=== PATIENT | male | born 1965 | race Caucasian/White ===

== ENCOUNTER 2016-03-21 09:40 | Inpatient (IN) | payer OTHER ==
[2016-03-21] MEDS ORDERED: ONDANSETRON 4 MG/2 ML VIAL IVP PRN (15:00)
[2016-03-21] MEDS ORDERED: POLYETHYLENE GLYCOL 3350 17 GM PKT PO PRN (15:00)
[2016-03-21] MEDS ORDERED: BISACODYL 10 MG SUPP PR PRN (15:00)
[2016-03-21] MEDS ORDERED: ONDANSETRON DISINTEGRATING 4 MG TAB PO PRN (15:00)
[2016-03-21] MEDS ORDERED: diphenhydrAMINE 25 MG CAP PO PRN (15:00)
[2016-03-21] MEDS ORDERED: MAGNESIUM HYDROXIDE 30 ML UDCUP PO PRN (15:00)
[2016-03-21] MEDS ORDERED: HYDROmorphONE/DILAUDID 1 MG/ML SYR IVP PRN (15:00)
[2016-03-21] MEDS ORDERED: ACETAMINOPHEN 325 MG TAB PO PRN (15:00)
[2016-03-21] MEDS: POLYETHYLENE GLYCOL 3350 17 GM PKT PO SCH ×2 (15:29→21:39)
--- NOTE | 2016-03-21 17:37 | GHP ---
[f rep st] HISTORY AND PHYSICAL DATE OF ADMISSION: 03/21/2016 REASON FOR ADMISSION: Lower extremity weakness and severe pain with movement, with an L1 compression deformity, likely metastatic renal cancer. 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 He was seen at [facility] for consultation. Given his severe back pain and his history of transitional renal cell carcinoma, Neurosurgery was consulted for treatment. Discussion between Radiation Oncology and Oncology over at [facility] had recommended surgical stabilization and debulking of the spinal cord given the level of compression. Here at [facility] there are services available for the angiogram with embolization prior to surgery, which will decrease bleeding loss during the surgery. Therefore, the patient was transferred to undergo definitive treatment. The patient today states that his back pain increases with any movement of either his neck or flexion of his hip. He is able to move his legs and feels like he has full strength when he is flat on his back. He does have some numbness over his bilateral hips. He does feel like he is incompletely emptying his bladder even though he has a Hampton in place. He does have severe burning pain with oral medications. He denies any stool incontinence, any saddle anesthesia. REVIEW OF SYSTEMS: Negative other than what is stated in the HPI. Please see for pertinent negatives and pertinent positives. PAST MEDICAL HISTORY: Significant for transitional bladder cell cancer. PAST SURGICAL HISTORY: Significant for vasectomy, bladder surgery biopsy and cystoscopy. SOCIAL HISTORY: The patient has never smoked. He does drink 1-2 alcoholic beverages occasionally. He lives with his . He works as a maintenance supervisor mechanical. ALLERGIES: No known drug allergies. HOME MEDICATIONS: Include diazepam 5 mg, p.r.n. pain, Colace 1 p.o. twice daily. PHYSICAL EXAMINATION: VITAL SIGNS: Blood pressure was 124/74, heart rate 100, respirations 16, O2 saturation 97% on 2 L nasal cannula, temperature 36.8. GENERAL: Patient is in no acute distress. NEUROLOGIC: He is alert and oriented x3. Answers questions appropriately. Mood and affect are appropriate for the given situation. Cranial nerve 2 through 12 grossly intact. EOMI, PERRLA. The patient is 5/5 and equal in his bilateral upper and lower extremities including his deltoids triceps, biceps, wrist flexors, extensors, interossei, intrinsic sales solutions representative, iliopsoas, hamstrings, quadriceps, plantar flexion, dorsiflexion, EHL. His strength exam is somewhat limited to pain as he does have excruciating back pain when he does flex his knees up. It does appear to be full strength. Sensation is intact in bilateral upper and bilateral lower extremities except for the patient does have some numbness over his bilateral lateral hips. DIAGNOSTIC REVIEW: Patient underwent a lumbar spine MRI at [facility] on 03/19 which demonstrated severe pathological fracture of the L1 vertebral body resulting retropulsion and soft-tissue tumor bulging into the ventral epidural space with severe spinal canal stenosis and compression of the conus. There may be some edema noted at the conus as well. There is significant soft tissue tumor involvement in the retroperitoneum, more on the right than on the left-hand side at L1. There is some milder bony metastatic disease at L2 with degenerative changes in the lumbar spine from L3-S1. The patient also underwent labs on 03/20 which demonstrated sodium 132, potassium 4.2, chloride 100, CO2 of 26, BUN 10, creatinine 0.66, glucose 95. His CBC from 03/19 demonstrated WBCs 11.2, hemoglobin of 14.8, hematocrit 44.3, and platelet count of 413. ASSESSMENT/PLAN: The patient is a 50-year-old gentleman with known transitional renal cell carcinoma with spine mets, who has a severe compression deformity at L1 with tumor encroachment of his spinal canal and severe cord compression at the L1 level. He was transferred [facility] to undergo definitive treatment including an angiogram for embolization to reduce blood flow to the tumor to assist in operative resection and reduced blood flow loss. We will plan for embolization on with surgery scheduled for Thursday to include a T11-L3 posterior fusion with laminectomy from T12 to L2, with corpectomy at L1. Given the patient's feeling of urinary retention, we will go ahead and order a bladder scanning protocol to see if his Hampton catheter is fully functioning. Optimize pain management. The patient states that he has had a hard time taking oral pain medications in the past. I have ordered him IV Pepcid to see if this can reduce his stomach upset so he can tolerate p.o. pain medications. Continue q.4 hours neuro checks. If the patient develops any new or worsening symptoms, any change in neurological or motor exam, please notify Neurosurgery. Patient was seen by Dr Aj. /[id number]/MODL MTDD
[2016-03-21] MEDS ORDERED: FAMOTIDINE 20 MG/NACL 50 ML IV SCH (21:00)
[2016-03-21] MEDS: HYDROmorphONE/DILAUDID 1 MG/ML SYR IVP PRN (21:33)
[2016-03-21] MEDS: DIAZEPAM 5 MG TAB PO PRN (21:38)
[2016-03-21] MEDS: SENNOSIDES/DOCUSATE SODIUM TAB PO SCH (21:39)
[2016-03-22] MEDS: HYDROmorphONE/DILAUDID 1 MG/ML SYR IVP PRN ×3 (00:02→05:36)
[2016-03-22] MEDS: METHOCARBAMOL 750 MG TAB PO PRN ×3 (02:33→13:16)
[2016-03-22] MEDS: DIAZEPAM 5 MG TAB PO PRN ×2 (05:36→20:52)
[2016-03-22] MEDS: ENOXAPARIN 40 MG/0.4 ML SYR SC SCH (08:41)
[2016-03-22] MEDS: SENNOSIDES/DOCUSATE SODIUM TAB PO SCH ×2 (08:41→20:52)
[2016-03-22] MEDS: FAMOTIDINE 20 MG TAB PO SCH ×2 (08:41→20:53)
[2016-03-22] MEDS: POLYETHYLENE GLYCOL 3350 17 GM PKT PO SCH ×3 (08:42→20:53)
[2016-03-22] MEDS: HYDROCODONE/APAP 10/325 TAB PO PRN ×3 (08:53→20:53)
--- NOTE | 2016-03-22 15:17 | NEUSURGPN ---
Assessment/Plan: A: 50 yo M with metastatic transitional cell renal CA and L1 compression fx/ intractable back pain. MRI shows conus cord compression. Plan: -Plan for embolization of L1 lesion and T11-L3 PSF, L1 corpectomy, T12-L2 laminectomy later this week -Pain management -Concern for skin breakdown as pt not moving. need to monitor closely -Call NS with any issues Subjective: Pt resting in bed, tolerating oral narcotics. Objective: AAOx3 NAD VSS MAEx4 Motor 5/5 BUE/BLE +LT Urinary Catheter in Place: No Neurosurgery Physical Exam - Vitals, I&O, Labs I and O 03/21/16 03/22/16 03/23/16 05:59 05:59 05:59 Intake Total 150 Output Total 2900 Balance -2750 Weight 54.431 kg Intake: Oral (ml) 150 Output: Urine (ml) 2900 Catheter 2900 Other: Number of Voids Catheter 1 Vital Signs Temp Pulse Resp BP Pulse Ox 36.9 C 101 H 18 132/99 H 95 03/22/16 08:00 03/22/16 08:00 03/22/16 08:00 03/22/16 08:00 03/22/16 08:00 ICD10 Worksheet Patient Problems: Problems Problem Status Diagnosed Renal cell carcinoma Acute - ICD10 Problem Qualifiers (1) Renal cell carcinoma Qualifiers: Laterality: unspecified laterality Qualified Description: Renal cell carcinoma, unspecified laterality Qualifier Code(s): (C64.9) Malignant neoplasm of unspecified kidney, except renal pelvis
[2016-03-23] MEDS: METHOCARBAMOL 750 MG TAB PO PRN (00:38)
[2016-03-23] MEDS: HYDROCODONE/APAP 10/325 TAB PO PRN ×5 (00:38→20:31)
[2016-03-23] MEDS: DIAZEPAM 5 MG TAB PO PRN (05:33)
--- NOTE | 2016-03-23 07:31 | NEUSURGPN ---
Assessment/Plan: A: 50 yo M with metastatic transitional cell renal CA and L1 compression fx/ intractable back pain. MRI shows conus cord compression. Plan: -Plan for embolization of L1 lesion and T11-L3 PSF, L1 corpectomy, T12-L2 laminectomy later this week -Pt verbalizes understanding of plan for embolization/surgery. All Qs answered. -Pain management -Concern for skin breakdown as pt not moving. need to monitor closely -Call NS with any issues Subjective: Pt resting in bed. Pain well managed. Objective: AAOx3 NAD VSS MAEx4 Motor 5/5 BUE/BLE +LT Urinary Catheter in Place: No Neurosurgery Physical Exam - Vitals, I&O, Labs I and O 03/22/16 03/23/16 03/24/16 05:59 05:59 05:59 Intake Total 150 400 Output Total 2900 350 Balance -2750 50 Weight 54.431 kg Intake: Oral (ml) 150 400 Output: Urine (ml) 2900 350 Catheter 2900 350 Other: Number of Voids Catheter 1 Vital Signs Temp Pulse Resp BP Pulse Ox 36.9 C 95 18 128/90 H 94 03/23/16 05:21 03/23/16 05:21 03/23/16 05:21 03/23/16 05:21 03/23/16 05:21 ICD10 Worksheet Patient Problems: Problems Problem Status Diagnosed Renal cell carcinoma Acute - ICD10 Problem Qualifiers (1) Renal cell carcinoma Qualifiers: Laterality: unspecified laterality Qualified Description: Renal cell carcinoma, unspecified laterality Qualifier Code(s): (C64.9) Malignant neoplasm of unspecified kidney, except renal pelvis
[2016-03-23] MEDS: POLYETHYLENE GLYCOL 3350 17 GM PKT PO SCH ×3 (09:42→20:28)
[2016-03-23] MEDS: ENOXAPARIN 40 MG/0.4 ML SYR SC SCH (09:43)
[2016-03-23] MEDS: SENNOSIDES/DOCUSATE SODIUM TAB PO SCH ×2 (09:44→20:26)
[2016-03-23] MEDS: FAMOTIDINE 20 MG TAB PO SCH ×2 (09:44→20:27)
[2016-03-24] MEDS: HYDROCODONE/APAP 10/325 TAB PO PRN ×5 (00:05→21:20)
[2016-03-24] MEDS: DIAZEPAM 5 MG TAB PO PRN (00:05)
--- NOTE | 2016-03-24 07:37 | NEUSURGPN ---
Assessment/Plan: A: 50 yo M with metastatic transitional cell renal CA and L1 compression fx/ intractable back pain. MRI shows conus cord compression. Plan: -Plan for embolization of L1 lesion and T11-L3 PSF, L1 corpectomy, T12-L2 laminectomy later this week -Pt still unble to sit up due to increase in severe pain. Continue pain management, turning -Bowel protocol, Pulmonary toliet -DVT prophx: TEDs, SCDs, Lovenox -Pain management -Concern for skin breakdown as pt not moving. need to monitor closely -Call NS with any issues -Seen with Dr. Aj this morning Subjective: Unable to sit up due to pain, reflux symptoms have improved slightly, tolerating [place] Objective: LIANA MAEx4 5/5 and equal in BUE and BLE - Physician Patient Seen by Dr.: Aj Neurosurgery Physical Exam - Vitals, I&O, Labs I and O 03/23/16 03/24/16 03/25/16 05:59 05:59 05:59 Intake Total 400 1500 Output Total 350 1600 Balance 50 -100 Intake: Oral (ml) 400 1500 Output: Urine (ml) 350 1600 Catheter 350 1600 Other: Intake Quantity Yes Sufficient Vital Signs Temp Pulse Resp BP Pulse Ox 36.9 C 92 16 139/93 H 96 03/24/16 04:21 03/24/16 04:21 03/24/16 04:21 03/24/16 04:21 03/24/16 04:21 ICD10 Worksheet Patient Problems: Problems Problem Status Diagnosed Renal cell carcinoma Acute
[2016-03-24] MEDS: SENNOSIDES/DOCUSATE SODIUM TAB PO SCH ×2 (09:53→21:15)
[2016-03-24] MEDS: LACTULOSE 20 GM/30 ML UDCUP PO PRN (09:53)
[2016-03-24] MEDS: POLYETHYLENE GLYCOL 3350 17 GM PKT PO SCH ×3 (09:53→22:17)
[2016-03-24] MEDS: FAMOTIDINE 20 MG TAB PO SCH ×2 (09:53→21:15)
[2016-03-24] MEDS: ENOXAPARIN 40 MG/0.4 ML SYR SC SCH (09:54)
[2016-03-24] MEDS: HYDROmorphONE/DILAUDID 1 MG/ML SYR IVP PRN (22:58)
[2016-03-25] MEDS: HYDROCODONE/APAP 10/325 TAB PO PRN ×4 (02:36→22:06)
[2016-03-25] MEDS: DIAZEPAM 5 MG TAB PO PRN ×2 (02:36→22:06)
[2016-03-25] MEDS: ENOXAPARIN 40 MG/0.4 ML SYR SC SCH (07:46)
[2016-03-25] MEDS: LACTULOSE 20 GM/30 ML UDCUP PO PRN (07:46)
[2016-03-25] MEDS: SENNOSIDES/DOCUSATE SODIUM TAB PO SCH ×2 (07:47→19:37)
[2016-03-25] MEDS: POLYETHYLENE GLYCOL 3350 17 GM PKT PO SCH ×3 (07:47→19:37)
[2016-03-25] MEDS: FAMOTIDINE 20 MG TAB PO SCH ×2 (08:06→19:37)
--- NOTE | 2016-03-25 09:42 | NEUSURGPN ---
Assessment/Plan: A: 50 yo M with metastatic transitional cell renal CA and L1 compression fx/ intractable back pain. MRI shows conus cord compression. Plan: -Plan for embolization of L1 lesion and T11-L3 PSF, L1 corpectomy, T12-L2 laminectomy later this week. Risks, benefits, and alternatives discussed. Consents left at bedside and questions answered. -Pt still unable to sit up due to increase in severe pain. Continue pain management, turning -Bowel protocol, Pulmonary toliet -DVT prophx: TEDs, SCDs, Lovenox -Pain management -Concern for skin breakdown as pt to get OOB. need to monitor closely -Call NS with any issues -Discussed with Dr. Aj Subjective: continue back pain. Denies nay new leg pain, numbness, tingling or weakness. Objective: NAD A&Ox3 MAEx4 5/5 and equal in BUE and BLE. INcrease pain with hip flexion in low back - Physician Discussed Patient with Dr.: Aj Neurosurgery Physical Exam - Vitals, I&O, Labs I and O 03/24/16 03/25/16 03/26/16 05:59 05:59 05:59 Intake Total 1500 1450 Output Total 1600 1600 Balance -100 -150 Intake: Oral (ml) 1500 1450 Output: Urine (ml) 1600 1600 Catheter 1600 1600 Other: Intake Quantity Yes Sufficient Vital Signs Temp Pulse Resp BP Pulse Ox 36.4 C 92 16 135/84 H 96 03/25/16 07:50 03/25/16 07:50 03/25/16 07:50 03/25/16 07:50 03/25/16 07:50 ICD10 Worksheet Patient Problems: Problems Problem Status Diagnosed Renal cell carcinoma Acute
[2016-03-25] MEDS: NS W/ 20 KCl/L 1,000 ML IV SCH (10:05)
[2016-03-25] MEDS: HYDROmorphONE/DILAUDID 1 MG/ML SYR IVP PRN ×2 (13:11→18:16)
[2016-03-26] MEDS: HYDROCODONE/APAP 10/325 TAB PO PRN ×3 (04:38→20:35)
[2016-03-26] MEDS: DIAZEPAM 5 MG TAB PO PRN ×3 (04:38→20:35)
--- NOTE | 2016-03-26 07:50 | SOAPPROG ---
ZAID Progress Note Assessment/Plan: Assessment: 50 yo M with metastatic L1 lesion Plan: stable plan for angiogram for embolization of lesion tomorrow and surgery on Thursday PT/OT will check cbc/bmp today please call with neuro changes npo after midnight discussed with Dr Aj 03/26/16 07:48 Subjective: continued back pain, no leg pain Objective: Vital Signs Temp Pulse Resp BP Pulse Ox 36.8 C 84 16 123/82 H 96 03/26/16 07:29 03/26/16 07:29 03/26/16 07:29 03/26/16 07:29 03/26/16 07:29 03/25/16 03/26/16 03/27/16 05:59 05:59 05:59 Intake Total 1450 2250 Output Total 1600 1300 Balance -150 950 AAOX4, +FC PERRL, EOMI, no facial droop 5/5 + light touch ICD10 Worksheet Patient Problems: Problems Problem Status Diagnosed Renal cell carcinoma Acute
[2016-03-26 08:24] LABS: HEMATOCRIT 39.1 % (40.0-51.0); HEMOGLOBIN 12.6 g/dL (13.7-17.5); MEAN CELL HEMOGLOBIN 30.1 pg (27.9-34.1); MEAN CELL HEMOGLOBIN CONCENTR. 32.2 g/dL (32.4-36.7); MEAN CELL VOLUME 93.3 fL (81.5-99.8); RED BLOOD CELL COUNT 4.19 10^6/uL (4.40-6.38); RED CELL DISTRIBUTION WIDTH 13.8 % (11.5-15.2)
[2016-03-26 09:15] LABS: ANION GAP 7 mEq/L (8-16); CALCIUM 11.6 mg/dL (8.5-10.4); CARBON DIOXIDE 26 mEq/l (22-31); CHLORIDE 101 mEq/L (97-110); CREATININE 0.7 mg/dL (0.7-1.3); GLOMERULAR FILTRATION RATE > 60; GLUCOSE 93 mg/dL (70-100); POTASSIUM 4.7 mEq/L (3.5-5.2); SODIUM 134 mEq/L (134-144)
[2016-03-26] MEDS: POLYETHYLENE GLYCOL 3350 17 GM PKT PO SCH ×3 (09:18→20:41)
[2016-03-26] MEDS: ENOXAPARIN 40 MG/0.4 ML SYR SC SCH (09:18)
[2016-03-26] MEDS: FAMOTIDINE 20 MG TAB PO SCH ×2 (09:18→20:35)
[2016-03-26] MEDS: SENNOSIDES/DOCUSATE SODIUM TAB PO SCH ×2 (09:18→20:35)
[2016-03-26] MEDS: HYDROmorphONE/DILAUDID 1 MG/ML SYR IVP PRN ×2 (11:33→20:42)
[2016-03-26] MEDS: NS W/ 20 KCl/L 1,000 ML IV SCH (16:40)
[2016-03-27] MEDS: HYDROmorphONE/DILAUDID 1 MG/ML SYR IVP PRN ×7 (04:05→22:25)
[2016-03-27] MEDS: NS W/ 20 KCl/L 1,000 ML IV SCH ×2 (06:29→16:42)
--- NOTE | 2016-03-27 08:02 | NEUSURGPN ---
Assessment/Plan: A: 50 yo M with metastatic transitional cell renal CA and L1 compression fx/ intractable back pain. MRI shows conus cord compression. Plan: -Plan for embolization of L1 lesion today. NPO. -T11-L3 PSF, L1 corpectomy, T12-L2 laminectomy tomorrow. -Risks, benefits, and alternatives have been discussed. Consents in chart. -Pt still unable to sit up due to increase in severe pain. Continue pain management, turning -Bowel protocol, Pulmonary toliet -Pt c/o burning in abdomen d/t oral narcotics. On pepcid, will try adding H2 gunnar to see if this provides any benefit. -DVT prophx: TEDs, SCDs, Lovenox -Pain management -Concern for skin breakdown as pt to get OOB. need to monitor closely -Call NS with any issues -Discussed with Dr. Aj & Dr Farmer Subjective: Pt resting in bed, c/o burning in abdomen that he relates to oral narcotics. Continued back pain. Objective: AAOx3 NAD VSS MAEx4 Motor 5/5 BUE/BLE +LT Urinary Catheter in Place: Yes Urinary Catheter Indication: Other (Use Comment) (not ambulating) - Physician Discussed Patient with : Madai Neurosurgery Physical Exam - Vitals, I&O, Labs I and O 03/26/16 03/27/16 03/28/16 05:59 05:59 05:59 Intake Total 2250 2229 Output Total 1300 1800 Balance 950 429 Intake: Oral (ml) 1350 350 IV Infused (ml) 900 1879 NS W/ 20 KCl/L 1,000 ml @ 900 1879 75 mls/hr IV CONT CARLITOS Rx #:[id number] Output: Urine (ml) 1300 1800 Catheter 1300 1800 Other: Intake Quantity Yes Sufficient Number of Stools Catheter 1 Incontinence 1 Vital Signs Temp Pulse Resp BP Pulse Ox 36.9 C 87 16 130/82 H 95 03/26/16 23:44 03/26/16 23:44 03/26/16 23:44 03/26/16 23:44 03/26/16 23:44 Laboratory Results 03/26/16 08:17 03/26/16 08:17 ICD10 Worksheet Patient Problems: Problems Problem Status Diagnosed Renal cell carcinoma Acute - ICD10 Problem Qualifiers (1) Renal cell carcinoma Qualifiers: Laterality: unspecified laterality Qualified Description: Renal cell carcinoma, unspecified laterality Qualifier Code(s): (C64.9) Malignant neoplasm of unspecified kidney, except renal pelvis
[2016-03-27] MEDS: FAMOTIDINE 20 MG/NACL 50 ML IV SCH ×2 (09:00→20:08)
[2016-03-27] MEDS: ENOXAPARIN 40 MG/0.4 ML SYR SC SCH (09:04)
[2016-03-27] MEDS: POLYETHYLENE GLYCOL 3350 17 GM PKT PO SCH ×3 (09:05→20:08)
[2016-03-27] MEDS: SENNOSIDES/DOCUSATE SODIUM TAB PO SCH ×2 (09:05→20:08)
[2016-03-27] MEDS: DIAZEPAM 10 MG/2 ML SYR IVP PRN ×2 (09:14→18:11)
[2016-03-27] MEDS ORDERED: fentaNYL 250 MCG/5 ML INJ ONE (13:21)
[2016-03-27] MEDS ORDERED: MIDAZOLAM 2 MG/2 ML VIAL ONE (13:21)
[2016-03-27] MEDS ORDERED: PROPOFOL 200 MG/20 ML VIAL ONE ×2 (13:21→14:07)
[2016-03-27] MEDS ORDERED: RANITIDINE HCL IV SCH (14:00)
[2016-03-27] MEDS ORDERED: D5W IV SCH (14:00)
[2016-03-27] MEDS ORDERED: RANITIDINE 50 MG/2 ML VIAL IVP SCH (14:00)
[2016-03-27] MEDS ORDERED: ROCURONIUM 50 MG/5 ML VIAL ONE (14:06)
[2016-03-27] MEDS ORDERED: LIDOCAINE 2% 5 ML SDV ONE (14:06)
[2016-03-27] MEDS ORDERED: IOPAMIDOL (ISOVUE-300) 100 ML BTL IV ONE ×2 (14:10→15:55)
[2016-03-27] MEDS ORDERED: ONDANSETRON 4 MG/2 ML VIAL ONE (14:27)
[2016-03-27] MEDS ORDERED: DEXAMETHASONE 4 MG/ML VIAL ONE (14:27)
--- NOTE | 2016-03-27 15:51 | POSTOPPROG ---
Post Op Note Date of Operation: 03/27/16 Surgeon: Chano Farmer It Investment/Portfolio Manager: none Anesthesia: GET(General Endotracheal) Pre-op Diagnosis: L1 tumor Post-op Diagnosis: same Indication: Pre-surgical embolization Procedure: Spinal angiogram T11-L3, embolization of right L1 radicular branch Findings: successful tumor embolization, relatively minimal tumor blush Inf/Abcess present in the surg proc area at time of surgery?: No EBL: Minimal Complications: none Specimen(s): none Neurosurgery Physical Exam - Physical Exam General Appearance: no apparent distress - Vitals, I&O, Labs I and O 03/26/16 03/27/16 03/28/16 05:59 05:59 05:59 Intake Total 2250 2229 Output Total 1300 1800 Balance 950 429 Intake: Oral (ml) 1350 350 IV Infused (ml) 900 1879 NS W/ 20 KCl/L 1,000 ml @ 900 1879 75 mls/hr IV CONT CARLITOS Rx #:[id number] Output: Urine (ml) 1300 1800 Catheter 1300 1800 Other: Intake Quantity Yes Sufficient Number of Stools Catheter 1 Incontinence 1 Vital Signs Temp Pulse Resp BP Pulse Ox 36.8 C 101 H 19 141/86 H 100 03/27/16 12:28 03/27/16 12:28 03/27/16 15:46 03/27/16 15:46 03/27/16 15:46 Laboratory Results 03/26/16 08:17 03/26/16 08:17 Patient waking from anesthetic strength 5/5 in KF/KE, PF/DF bilaterally. HF difficult to assess due to back pain sensation intact distal pulses intact, groin CDI
--- NOTE | 2016-03-27 20:14 | IR ---
Neurovascular Angiogram Procedure Report March 27, 2016 Attending Physician: Chano Farmer M.D. Assistants: None. Procedure: 1. Selective catheterization of bilateral spinal radicular arteries T11 through L3. 2. Selective spinal angiography of bilateral T11 through L3, with angiographic supervision and interpretation. 3. Spinal embolization of vertebral body tumor via right L1 pedicle. 4. Follow-up angiography via an existing catheter. Preoperative Diagnosis: Pathologic compression fracture at L1 from likely metastatic renal cell carcinoma. Postoperative Diagnosis: Pathologic compression fracture at L1 from likely metastatic renal cell carcinoma. Brief Clinical History: Regis Mcclendon is a 50-year-old man with metastatic renal cell carcinoma. He was admitted at [facility] last week with intractable back pain. He has been transferred to [facility] and was scheduled for preoperative embolism today for L1 corpectomy and fusion tomorrow. The procedure was done in the hopes of cutting down on the preoperative blood supply for better ease of surgery tomorrow. Operative Findings: Successful selective spinal angiography and tumor embolization via the right L1 pedicle. The artery of Adamkiewicz is from the left L1 radicular artery. Procedure In Detail: After informed consent was obtained from the patient, the patient was brought to the Angiography Suite and placed in supine position on the angiography table. A formal timeout was performed identifying the patient by name, medical record number, and date of . The endotracheal tube was then placed and general endotracheal anesthesia was smoothly induced by anesthesia. The bilateral groins were prepped and draped in the normal sterile fashion. Using a 5-Fijian Micropuncture kit and Seldinger technique, the right common femoral artery was entered just below the inguinal ligament and a 5- Fijian [place] working sheath was placed. Through this working sheath, a 5- Fijian Grace catheter over a 3J Glidewire was advanced into the descending aorta. The catheter was then shaped into its regular position. The catheter was then used to selectively catheterize the spinal radicular arteries at T11 through L3 bilaterally. Selective spinal angiography was performed on each vessel with multiple oblique views where needed. Once the spinal angiography was complete, the artery of Adamkiewicz was localized at the left L1 pedicle and the right L1 pedicle has small blush consistent with a tumor. Overall, the blush was not very significant however was safe for embolization. Therefore, a 0.027 microcatheter was advanced through the Vanda catheter into the L1 radicular artery and placed distally. Microcatheter angiography was performed confirming good placement of a Microcatheter, with no obvious collateralization to the spinal cord or the artery of Adamkiewicz. 250 micron Embozene particles were then infused through the Microcatheter until static flow was obtained into the right L1 radicular artery. The Microcatheter was then flushed and removed and the follow-up angiography was performed with AP views through the existing catheter. The catheter was then removed from the body. The sheath was removed and manual compression was held for eight minutes. At the end of the procedure , the groin was clean and dry and the distal pulses were palpable and strong. The patient was then awakened from anesthesia and taken to the PACU in stable condition. There were no operative complications. I was scrubbed and present for the entire procedure. The patient's neurologic exam was at its baseline. Radiographic Interpretation: Left T11: The left T11 radicular artery is in its normal configuration. There is no sign of fistula or other abnormality. There is slight collateralization with T12 on the left side below. No tumor blush is seen. The artery of Adamkiewicz is not seen at this level. Right T11: The radicular artery is of its normal configuration. There is again slight collateralization with the right T12 below. There are no collaterals to the spinal cord and no fistula is seen. No tumor blush is visualized in this vessel. Right T12: The right T12 radicular artery shows normal anatomy. There is some blush of the T12 vertebral body but this is not terribly significant. The artery of Adamkiewicz is not seen at this level. No further pathology is visualized. Left T12: The left T12 radicular artery is seen and is normal. There is no abnormal collateralization with the spinal cord. No significant tumor blush is seen. There is no sign of fistula or other pathology. Right L1: The right L1 radicular artery is visualized. There is a slight tumor blush posteriorly and medially in the vertebral body. Overall, this is not a very large blush with the tumor, which would normally be seen with renal cell carcinoma. No abnormal communications with the spinal cord or the artery of Adamkiewicz are seen. Left L1 radicular artery: At the left L1, the artery of Adamkiewicz is seen anastomosing with the spinal arteries in the midline. It does have its classic hairpin shape. No significant tumor blush at the L1 vertebral body is seen from this pedicle. There is no other sign of fistula or abnormality. Right L2: The right L2 radicular artery appears normal in its anatomy. There are no abnormal connections or fistula. There is no sign of a tumor blush from this vessel. Left L2: The left L2 radicular artery is of normal course and caliber. There is no abnormal anastomoses. There is no sign of tumor blush or communication with the L1 vertebral body at this level. Left L3: The left L3 and right L3 come from a near common trunk. There is some opacification of the right L3 radicular artery from the left-sided injection. The artery is of normal course and caliber. There is no sign or a fistula or any communication with the tumor or tumor blush. Right L3: Again, the right L3 radicular artery comes from a near common trunk with the left. The right L3 radicular artery is of normal course and caliber. There is no sign of fistula and no tumor blush is seen. Right renal artery: The right renal artery shows normal anatomy. There is no sign of an abnormal fistula or connection with the spinal canal. Left renal artery: The left renal artery has normal anatomy. There is no sign of any tumor supply or fistula. The remainder of the anatomy is normal. Right L1 radicular artery postembolization: Postembolization of the right L1 radicular artery has stagnant flow of contrast in the proximal segment. There is no further supply of any tumor blush or any distal supply in the L1 radicular artery. There is some slight stagnant contrast blush from the embolization in the area of the right L1 pedicle and facet joint. Impressions: Successful spinal angiography of T11 to L3 bilaterally. The artery of Adamkiewicz originates at the left L1 radicular artery and anastomoses with the arteries of the spinal canal. The right L1 radicular artery was embolized with 250 micron embolizing particles until there was a stagnant flow in that artery. No further tumor blush was seen on follow-up angiography. The patient tolerated the procedure well and there were no complications. E:AB/amm ARAVINDD
[2016-03-28] MEDS: HYDROmorphONE/DILAUDID 1 MG/ML SYR IVP PRN ×7 (01:12→22:14)
[2016-03-28] MEDS: DIAZEPAM 10 MG/2 ML SYR IVP PRN ×2 (01:12→20:50)
[2016-03-28] MEDS ORDERED: SKIN ADHESIVE (DERMABOND) 1 EACH TP ONE (06:48)
[2016-03-28] MEDS ORDERED: THROMBIN (RECOMBINANT) 20,000 UNIT VIAL TP ONE (06:48)
[2016-03-28] MEDS ORDERED: BUPIVACAINE/EPI 0.25% 30 ML SDV ONE (06:48)
[2016-03-28] MEDS ORDERED: BACITRACIN 50,000 UNITS/10 ML SYR IRR ONE (06:49)
[2016-03-28] MEDS ORDERED: REMIFENTANIL HCL 1 MG VIAL ONE ×2 (07:14→11:07)
[2016-03-28] MEDS ORDERED: PROPOFOL/EMULSION 500 MG/50 ML BOTTLE IV ONE ×2 (07:14→11:07)
[2016-03-28] MEDS ORDERED: DEXAMETHASONE 4 MG/ML VIAL ONE (07:15)
[2016-03-28] MEDS ORDERED: METOCLOPRAMIDE 10 MG/2 ML VIAL ONE (07:15)
[2016-03-28] MEDS ORDERED: ROCURONIUM 100 MG/10 ML VIAL ONE (07:15)
[2016-03-28] MEDS ORDERED: MIDAZOLAM 2 MG/2 ML VIAL ONE ×2 (07:15→13:56)
[2016-03-28] MEDS ORDERED: LIDOCAINE 2% 100 MG/5 ML SYR IVP ONE (07:15)
--- NOTE | 2016-03-28 07:42 | NEUSURGPN ---
Assessment/Plan: A: 50 yo M with metastatic transitional cell renal CA and L1 compression fx/ intractable back pain. MRI shows conus cord compression. TO OR this morning for Risks, benefits and alternatives to T11-L3 posterior fusion laminectomy T12-L2 with L1 corepectomy discussed. Consents signed. Questions answered Patient marked Seen by Dr. Aj and myself Neurosurgery Physical Exam - Vitals, I&O, Labs I and O 03/27/16 03/28/16 03/29/16 05:59 05:59 05:59 Intake Total 2229 1300 Output Total 1800 2600 Balance 429 -1300 Intake: Oral (ml) 350 IV Intake (ml) 1300 IV Infused (ml) 1879 NS W/ 20 KCl/L 1,000 ml @ 1879 75 mls/hr IV CONT CARLITOS Rx #:[id number] Output: Urine (ml) 1800 2600 Catheter 1800 2600 Other: Intake Quantity Yes Sufficient Number of Stools Incontinence 1 1 1 Vital Signs Temp Pulse Resp BP Pulse Ox 36.8 C 93 16 148/95 H 93 03/28/16 03:28 03/28/16 03:28 03/28/16 03:28 03/28/16 03:28 03/28/16 03:28 Laboratory Results 03/26/16 08:17 03/26/16 08:17 ICD10 Worksheet Patient Problems: Problems Problem Status Diagnosed Renal cell carcinoma Acute
[2016-03-28] MEDS ORDERED: PHENYLEPHRINE 10 MG/ML SDV ONE (11:14)
[2016-03-28] MEDS ORDERED: SUGAMMADEX SODIUM 200 MG/2 ML VIAL IVP ONE (11:44)
[2016-03-28] MEDS ORDERED: fentaNYL 100 MCG/2 ML INJ ONE ×2 (11:56→13:39)
--- NOTE | 2016-03-28 13:29 | POSTOPPROG ---
Post Op Note Date of Operation: 03/28/16 Surgeon: Aris Aj Associate Professor Of Sociology: ADRIANA Alvarado Anesthesia: GET(General Endotracheal) Pre-op Diagnosis: spinal mass, spinal cord compression Post-op Diagnosis: spinal mass, spinal cord compression Indication: spinal mass, spinal cord compression Procedure: T11-L3 posterior fusion, T12-L2 laminectomy with L1 corepectomy Inf/Abcess present in the surg proc area at time of surgery?: No EBL: 350 Drains: Art BRADY Addendum - Addendum .: S: incisional site/low back pain O: NAD A&Ox3 MAEx4, MICHELE drain serosanguineous Plan -Final pathology pending, prelim intraop path consistent with known tranistional renal carcinoma - post MRI pending -Post op xrays pending -Ramer brace when OOB -MICHELE x1 -DVT pophx: TEDs, SCDs, Lovenox okay POD#1 -Optimize pain management -Encourage patient to get OOB to chair, promote diet -Please notify NS with any change in neuro/motor exam
--- NOTE | 2016-03-28 13:33 | GOP ---
[f rep st] OPERATIVE REPORT DATE OF OPERATION: 03/28/2016 SURGEON: Aris Aj MD FLOOR MECHANIC: assisted living executive director: Mara Alvarado PA-C. ANESTHESIA: General. PREOPERATIVE DIAGNOSIS: 1. L1 pathologic compression fracture secondary to metastatic renal cell carcinoma. 2. Intractable back pain. 3. Severe spinal cord compression. 4. Treatment refractory to nonoperative intervention. POSTOPERATIVE DIAGNOSIS: 1. L1 pathologic compression fracture secondary to metastatic renal cell carcinoma. 2. Intractable back pain. 3. Severe spinal cord compression. 4. Treatment refractory to nonoperative intervention. PROCEDURE PERFORMED: 1. Open reduction and internal fixation of L1 pathologic compression fracture. 2. Posterior arthrodesis with approach at T11, T12, L1, L2, and L3. 3. Posterolateral fusion with bilateral pedicle screw placement at T11, T12, L2 , and L3 from the [employer] SOLERA system. 4. Posterolateral fusion between T11 and L3 on the left, and T11, T12, L2, and L3 on the right morselized autograft and allograft. 5. Decompressive laminectomy with bilateral medial facetectomies at T12-L1 and L1-L2 with resection of epidural compressive lesion. 6. Right-sided L1 transpedicular corpectomy and interbody fusion between the endplates of T12 and L1 with a Medtronic Altitude expandable cage filled with morselized allograft and autograft. 7. Use of intraoperative 3D Stealth navigation. 8. Use of intraoperative fluoroscopy, with less than 1 hour of physician time. 9. Use of neuromonitoring. FINDINGS: SPECIMENS: The L1 vertebral body was sent to Pathology for both permanent and frozen analysis. ESTIMATED BLOOD LOSS: 350 mL. INDICATIONS: The patient is a 50-year-old gentleman with a known history of renal cell metastatic carcinoma. He presented with worsening low back pain and was mobilized at home. Evidence of a pathologic compression fracture at L1 afforded severe spinal cord compression. After discussion of the risks, benefits, and treatment alternatives, we decided to proceed forth with the surgery as described above. The patient underwent embolization the day before surgical intervention. He presents now for that surgery to decompress and stabilize his spine. DESCRIPTION OF PROCEDURE: The patient was brought to the operating theater and underwent general endotracheal anesthesia without complications. He had Venodynes and RUBÉN hose, and a Hampton catheter placed. He had appropriate lines placed by Anesthesia, and a pre-flip baseline obtained from neuromonitoring. These were noted to be stable. The patient was then flipped prone onto the Art table using very careful spinal precautions. All bony processes were inspected and padded. The thoracolumbar area was prepped and draped in the usual sterile surgical fashion. A time-out was completed per protocol, and the patient received antibiotics within 1 hour of incision. Using lateral fluoroscopy and a spinal needle, we then picked our entry point at the T11 through L3 levels. This was marked in the midline, and the incision was infiltrated with Marcaine with epinephrine. The incision was taken down with a scalpel blade. Using the monopolar, it was taken down the midline through the lumbodorsal fascia, and a subperiosteal dissection was carried out to the transverse process of T11, T12, L1, L2, and L3. Deep retractors were placed to maintain our exposure. We attached the 3D Stealth navigation clamp to the spinous process of L3 and completed a 3D Stealth navigation spin. Using 3D Stealth navigation, we placed the remote pilot operator holes for the bilateral pedicle screws at T11, T12, L2, and L3. All holes were manually palpated with no evidence of any cortical breaches. We placed 6.5 mm screws bilaterally in T11, T12, L2, and L3 from the [employer] SOLERA system. Another 3D Stealth navigation spin demonstrated good placement of the hardware. At this point, we used a combination of bur tip on the drill, Kerrison rongeurs punches, and a Leksell rongeur, and we completed a decompressive laminectomy at T12, L1, and L2 with bilateral medial facetectomies. We then traveled around to the right side of the L1 level. Using a transpedicular approach, we completed an L1 partial corpectomy. There was evidence of lots of tumor and soft tissue within this area, as well as some bony fragments. We sent the specimen off to Pathology for both frozen and permanent analysis. This came back consistent with renal cell metastatic carcinoma. Once we felt that the spinal cord was well decompressed, we measured the endplates between T12 and L2, which we then prepared. We measured them by space and placed a 36 mm expandable cage filled with morselized autograft and allograft between the endplates of T12 and L2 using live AP and lateral fluoroscopic images. We packed additional morcellized autograft in the disk space for interbody fusion. We then decorticated the bone on the left side between T11 and L3, and on the right side between T11, T12, L1, L2, and L3 for the posterolateral fusion. We placed 2 rods into the heads of the screws between T11 and L3, and secured them with cap screws which were then tightened after compression across the T12-L2 space. The cap screws were tightened per the gas turbine mechanic's setting. The wound was irrigated copiously with bacitracin irrigation, and we placed morselized autograft and allograft bilaterally between T11, T12, L2, and L3, and on the left side between T12 and L2. AP and lateral x-rays demonstrated good placement of the hardware. A drain was left in the subfascial space, and the wound was then closed in multiple layers using Vicryl sutures in the deep layers and a running nylon stitch for the skin. The patient's wounds were dressed sterilely. He was then flipped supine on the transfer cart and was still asleep at the time of this dictation. There were no complications and no noted changes on neuromonitoring throughout the procedure. COMPLICATIONS: None. /[id number]/MODL MTDD
--- NOTE | 2016-03-28 15:08 | DX ---
Fluoroscopy Provided for Spinal Fusion Indication: Metastatic disease. Fluoroscopy time: 11.97. Dose: 18.1 mGy. Two O-arm spins were utilized yielding 669.85 DLP(mGycm). Technique: 2 intraoperative spot films were submitted. Comparison: MRI lumbar spine dated March 19, 2016. Findings: A 5 level posterior fusion construct has been performed and a corpectomy cage is present in the midportion of the construct. Impression: Fluoroscopy provided for posterior spinal fusion and corpectomy.
[2016-03-28] MEDS: SENNOSIDES/DOCUSATE SODIUM TAB PO SCH ×2 (15:32→21:38)
[2016-03-28] MEDS: POLYETHYLENE GLYCOL 3350 17 GM PKT PO SCH ×3 (15:32→21:38)
[2016-03-28] MEDS: FAMOTIDINE 20 MG/NACL 50 ML IV SCH ×2 (15:32→21:38)
[2016-03-28] MEDS: D5W NS W/ 20 KCl/L 1,000 ML IV SCH (15:36)
[2016-03-28] MEDS ORDERED: GADOBUTROL 10 ML VIAL IVP ONE (20:47)
[2016-03-28] MEDS ORDERED: SENNOSIDES/DOCUSATE SODIUM TAB PO SCH (21:00)
[2016-03-28] MEDS: HYDROCODONE/APAP 10/325 TAB PO PRN (22:13)
--- NOTE | 2016-03-28 22:17 | MR ---
MRI Lumbar Spine, Without and With Contrast History: History of metastatic renal cell carcinoma. Status post lumbar surgery. Technique: MRI was performed of the lumbar spine using a 1.5 Coreen MRI system. Sagittal, axial, and coronal imaging was obtained with standard imaging sequences. Images were obtained pre- and postint ravenous contrast, 5 mL Gadavist. Comparison: Outside MRI March 19, 2016. Findings: Postsurgical changes are seen of corpectomy and placement of a metallic cage at the level of L1. Pedicle screws have been placed at the T11, T12, L2, and L3 levels, with stabilization rods. With the postsurgical change, the level of corpectomy has limited evaluation in the spinal canal but it appears that the posterior bowing and retropulsion of the compression fracture and metastatic dis ease into the spinal canal has been improved. There is still some mild residual posterior bowing at the posterior cortex proximally 5 mm although limited evaluation. A metastatic lesion in the L2 vert ebral body is not as well seen with a metal artifact. The visualized thoracic spinal cord is normal in signal intensity although there is poor visualization of the conus at the level of surgery with th e metal artifact. There is edema in the paraspinous musculature bilaterally, right greater than left . There is also some edema in the posterior perirenal fat on the right. There is edema in the cathie pinous musculature from the surgery. Periaortic soft tissue masses are again visualized and similar in appearance with this limited evaluation. The paravertebral soft tissue mass anteriorly on the rig ht is also similar in appearance. Renal cortical cysts are seen bilaterally, with the largest being exophytic midpole left kidney, ko uring 4 cm. Degenerative disk and degenerative joint disease is seen at L3-L4 through L5-S1. There is a broad-ba sed annular bulge and facet arthropathy bilaterally, stable in appearance. Impression: Postsurgical changes of corpectomy of the metastatic lesion, with compression fracture a t L1, with reduction of the central spinal canal narrowing, as above. Fusion T11-L3, as above. The periaortic and paravertebral soft tissue masses are again visualized and stable with this limited jairo luation. Metastatic lesion in L2 is not as well seen with the metal artifact. Other postsurgical ch anges, as above.
[2016-03-29] MEDS: DIAZEPAM 10 MG/2 ML SYR IVP PRN ×2 (01:23→14:47)
[2016-03-29] MEDS: HYDROmorphONE/DILAUDID 2 MG TAB PO PRN ×2 (04:32→12:33)
[2016-03-29] MEDS: HYDROmorphONE/DILAUDID 1 MG/ML SYR IVP PRN ×7 (05:30→23:08)
[2016-03-29] MEDS: FAMOTIDINE 20 MG/NACL 50 ML IV SCH (08:10)
[2016-03-29] MEDS: POLYETHYLENE GLYCOL 3350 17 GM PKT PO SCH ×3 (09:11→20:11)
[2016-03-29] MEDS: SENNOSIDES/DOCUSATE SODIUM TAB PO SCH ×2 (09:11→20:11)
--- NOTE | 2016-03-29 10:05 | NEUSURGPN ---
Date of Surgery: 03/28/16 Post Op Day: 1 Assessment/Plan: 50 yo male with metastatic transitional renal CA POD #1 sp T11-L3 decompression/fusion with L1 corpectomy neuro stable, pain currently controlled Continue ICU today follow pathology/labs PT/OT as tolerated Continue MICHELE D/W Dr. Carreon Subjective: lying in bed, comfortable at the moment conversant, but tangential Objective: NEURO: CRUZ, sens +LT 5/5 DF/PF Urinary Catheter in Place: Yes Urinary Catheter Indication: Surgical Requirement Catheter Insertion Date: 03/28/16 - MICHELE Drain Subfascial Wound Drainage (ml): 50 Neurosurgery Physical Exam - Vitals, I&O, Labs I and O 03/28/16 03/29/16 03/30/16 05:59 05:59 05:59 Intake Total 1300 3000 Output Total 2600 1425 Balance -1300 1575 Intake: Oral (ml) 540 IV Intake (ml) 1300 2250 IV Infused (ml) 210 ceFAZolin 1 GM/DEXTROSE 50 50 ml @ 200 mls/hr IV Q8HRS CARLITOS Rx#:[id number] D5W NS W/ 20 KCl/L 1,000 160 ml @ 100 mls/hr IV CONT CARLITOS Rx#:[id number] Output: Urine (ml) 2600 1025 Catheter 2600 1025 Estimated Blood Loss (ml) 350 Wound Drainage (ml) 50 #1 Left Back 50 Other: Number of Stools Incontinence 1 1 Vital Signs Temp Pulse Resp BP Pulse Ox 36.4 C 96 20 108/68 98 03/29/16 08:00 03/29/16 08:00 03/29/16 08:00 03/29/16 08:00 03/29/16 08:00 Laboratory Results 03/26/16 08:17 03/26/16 08:17 ICD10 Worksheet Patient Problems: Problems Problem Status Diagnosed Renal cell carcinoma Acute
[2016-03-29] MEDS: D5W NS W/ 20 KCl/L 1,000 ML IV SCH (13:26)
[2016-03-29] MEDS: FAMOTIDINE 20 MG TAB PO SCH (19:48)
[2016-03-30] MEDS: HYDROmorphONE/DILAUDID 1 MG/ML SYR IVP PRN ×2 (02:23→03:54)
[2016-03-30] MEDS: METHOCARBAMOL 750 MG TAB PO PRN ×3 (03:54→19:27)
[2016-03-30] MEDS ORDERED: HYDROmorphONE/DILAUDID 1 MG/ML SYR IVP PRN (07:48)
[2016-03-30] MEDS: FAMOTIDINE 20 MG TAB PO SCH ×2 (08:01→19:28)
[2016-03-30] MEDS: SENNOSIDES/DOCUSATE SODIUM TAB PO SCH ×2 (08:01→20:15)
[2016-03-30] MEDS: POLYETHYLENE GLYCOL 3350 17 GM PKT PO SCH ×3 (08:01→20:15)
[2016-03-30] MEDS: HYDROCODONE/APAP 10/325 TAB PO PRN ×2 (08:57→19:27)
[2016-03-30] MEDS: D5W NS W/ 20 KCl/L 1,000 ML IV SCH (10:35)
[2016-03-30] MEDS: ENOXAPARIN 40 MG/0.4 ML SYR SC SCH (12:08)
--- NOTE | 2016-03-30 12:26 | NEUSURGPN ---
Date of Surgery: 03/28/16 Post Op Day: 2 Assessment/Plan: 50 yo male with metastatic transitional renal CA POD #2 sp T11-L3 decompression/fusion with L1 corpectomy neuro stable, pain currently controlled Continue ICU today follow pathology/labs PT/OT as tolerated - currently max 2 person assist Continue MICHELE will get CBC and chemistry today D/W Dr. Carreon Subjective: standing with max assist with PT at bedside pain controlled generalized weakness Objective: Neuro: CRUZ but max assist with PT able 4/5 bilat quad/iliopsoas, 5/5 DF/PF, 4+5 EHL Sens +LT MICHELE: 85 ml overnight Dressing: CDI Catheter Insertion Date: 03/21/16 - Physician Discussed Patient with Dr.: Other (Lauri) Neurosurgery Physical Exam - Vitals, I&O, Labs I and O 03/29/16 03/30/16 03/31/16 05:59 05:59 05:59 Intake Total 3000 2644 Output Total 1425 1050 Balance 1575 1594 Intake: Oral (ml) 540 800 IV Intake (ml) 2250 IV Infused (ml) 210 1844 Famotidine 20 mg/NaCl 50 50 ml @ 200 mls/hr IV Q12 [facility]LITOS Rx#:[id number] ceFAZolin 1 GM/DEXTROSE 50 50 ml @ 200 mls/hr IV Q8HRS CARLITOS Rx#:[id number] D5W NS W/ 20 KCl/L 1,313 649 5312 ml @ 100 mls/hr IV CONT CARLITOS Rx#:[id number] Output: Urine (ml) 1025 825 Catheter 1025 825 Estimated Blood Loss (ml) 350 Wound Drainage (ml) 50 Subfascial 50 Wound Drainage (ml) 50 175 #1 Left Back 50 175 Other: Number of Stools Catheter 1 Incontinence 1 3 Vital Signs Temp Pulse Resp BP Pulse Ox 36.6 C 105 H 29 H 100/74 100 03/30/16 11:58 03/30/16 11:58 03/30/16 11:58 03/30/16 11:58 03/30/16 11:58 Laboratory Results 03/26/16 08:17 03/26/16 08:17 ICD10 Worksheet Patient Problems: Problems Problem Status Diagnosed Renal cell carcinoma Acute
[2016-03-30] MEDS: HYDROmorphONE/DILAUDID 2 MG TAB PO PRN (12:45)
[2016-03-30 13:08] LABS: HEMATOCRIT 29.8 % (40.0-51.0); HEMOGLOBIN 9.5 g/dL (13.7-17.5); MEAN CELL HEMOGLOBIN 30.2 pg (27.9-34.1); MEAN CELL HEMOGLOBIN CONCENTR. 31.9 g/dL (32.4-36.7); MEAN CELL VOLUME 94.6 fL (81.5-99.8); RED BLOOD CELL COUNT 3.15 10^6/uL (4.40-6.38); RED CELL DISTRIBUTION WIDTH 14.1 % (11.5-15.2)
[2016-03-30 13:28] LABS: ANION GAP 7 mEq/L (8-16); CALCIUM 9.5 mg/dL (8.5-10.4); CARBON DIOXIDE 24 mEq/l (22-31); CHLORIDE 106 mEq/L (97-110); CREATININE 0.7 mg/dL (0.7-1.3); GLOMERULAR FILTRATION RATE > 60; GLUCOSE 109 mg/dL (70-100); POTASSIUM 4.4 mEq/L (3.5-5.2); SODIUM 137 mEq/L (134-144)
[2016-03-30] MEDS: DIAZEPAM 5 MG TAB PO PRN (23:05)
[2016-03-31] MEDS: METHOCARBAMOL 750 MG TAB PO PRN (01:13)
[2016-03-31] MEDS: HYDROCODONE/APAP 10/325 TAB PO PRN ×3 (01:13→19:59)
[2016-03-31] MEDS: HYDROmorphONE/DILAUDID 2 MG TAB PO PRN ×2 (08:03→13:02)
[2016-03-31] MEDS: POLYETHYLENE GLYCOL 3350 17 GM PKT PO SCH ×3 (08:57→22:08)
[2016-03-31] MEDS: FAMOTIDINE 20 MG TAB PO SCH ×2 (08:57→19:59)
[2016-03-31] MEDS: SENNOSIDES/DOCUSATE SODIUM TAB PO SCH ×2 (08:57→22:08)
[2016-03-31] MEDS: ENOXAPARIN 40 MG/0.4 ML SYR SC SCH (08:57)
--- NOTE | 2016-03-31 11:13 | NEUSURGPN ---
Assessment/Plan: 50 yo male with metastatic transitional renal CA POD #3 sp T11-L3 decompression/fusion with L1 corpectomy neuro stable, pain currently controlled May transfer to floor later today follow pathology- still pending PT/OT as tolerated - currently max 2 person assist, encourage OOB to chair today PETER removed Discussed with Dr. Aj Subjective: Patient with expected back pain. Pain tolerable on medications. Still only able to get up to side of bed and not much else. Denies fever, chills. sob. Objective: NAD, VSS BLE 5/5 BUE 5/5 Sensation intact to lt touch Incision c/d/i Peter site clean Laboratory Tests 03/30/16 12:50 WBC 12.21 H RBC 3.15 L Hgb 9.5 L Hct 29.8 L Plt Count 328 Sodium 137 Chloride 106 Carbon Dioxide 24 BUN 15 Glucose 109 H Catheter Insertion Date: 03/21/16 - Physician Discussed Patient with : Madai Neurosurgery Physical Exam - Vitals, I&O, Labs I and O 03/30/16 03/31/16 04/01/16 05:59 05:59 05:59 Intake Total 2644 2451 Output Total 1050 900 Balance 1594 1551 Intake: Oral (ml) 800 1350 IV Infused (ml) 1844 1101 Famotidine 20 mg/NaCl 50 50 ml @ 200 mls/hr IV Q12 CARLITOS Rx#:[id number] D5W NS W/ 20 KCl/L 1,000 1794 1101 ml @ 100 mls/hr IV CONT CARLITOS Rx#:[id number] Output: Urine (ml) 825 850 Catheter 825 850 Wound Drainage (ml) 50 Subfascial 50 Wound Drainage (ml) 175 50 #1 Left Back 175 50 Other: Number of Stools Catheter 1 Incontinence 3 1 Vital Signs Temp Pulse Resp BP Pulse Ox 36.7 C 86 19 97/64 L 97 03/31/16 03:30 03/31/16 03:30 03/31/16 03:30 03/31/16 03:30 03/31/16 03:30 Laboratory Results 03/30/16 12:50 03/30/16 12:50 ICD10 Worksheet Patient Problems: Problems Problem Status Diagnosed Renal cell carcinoma Acute
[2016-03-31] MEDS: DIAZEPAM 5 MG TAB PO PRN (13:02)
[2016-03-31] MEDS: DIAZEPAM 10 MG/2 ML SYR IVP PRN (19:59)
[2016-04-01] MEDS: ENOXAPARIN 40 MG/0.4 ML SYR SC SCH (07:48)
[2016-04-01] MEDS: FAMOTIDINE 20 MG TAB PO SCH ×2 (07:48→22:06)
[2016-04-01] MEDS: SENNOSIDES/DOCUSATE SODIUM TAB PO SCH ×2 (08:04→22:07)
[2016-04-01] MEDS: POLYETHYLENE GLYCOL 3350 17 GM PKT PO SCH ×3 (08:04→22:07)
[2016-04-01] MEDS: HYDROCODONE/APAP 10/325 TAB PO PRN ×3 (10:13→22:07)
[2016-04-01] MEDS: DIAZEPAM 5 MG TAB PO PRN ×3 (10:13→22:08)
--- NOTE | 2016-04-01 10:14 | SOAPPROG ---
Downtime Inpatient MD Late Entry SOAP Note: Due to issues with documentation/EMR system this NEUROSURGERY progress note was entered in this format, the patient was seen this morning at 0730 S: low back pain, but medications are helping O: NAD A&Ox3 MAEx4 5/5 and equal in BUE and BLE. Incisional dressing c/d/i A/P: 50 yo male with metastatic transitional renal CA POD #4 sp T11-L3 decompression/fusion with L1 corpectomy neuro stable, pain currently controlled Transfer to the floor follow pathology- still pending Post op xrays pending Post op MRI demonstrates good decompression with other areas of known metastatic disease. PT/OT as tolerated - currently max 2 person assist, encourage OOB to chair today Optmize pain management Discussed patient at [facility] tumor this morning. They are recommended further system treatment with radiation/chemotherapy. Per the patient request he would like to follow up with Dr. Luna to discuss further radiation options once cleared from surgery. Discussed with Dr. Aj
[2016-04-02] MEDS: HYDROCODONE/APAP 10/325 TAB PO PRN ×4 (04:15→21:27)
[2016-04-02] MEDS: DIAZEPAM 5 MG TAB PO PRN (04:16)
--- NOTE | 2016-04-02 07:25 | NEUSURGPN ---
Date of Surgery: 03/28/16 Post Op Day: 5 Assessment/Plan: Assessment: 50 yo male with metastatic transitional renal CA POD #5 s/p T11-L3 decompression/fusion with L1 corpectomy Plan: -neuro stable, pain currently controlled -rested thru night -xrays pending -encourage nutritional intake -follow pathology- still pending -PT/OT-CPM. Encourage OOB to chair today -MICHELE removed already -CDI -discussed with Dr. Aj -call with any questions or concerns Subjective: Awake and alert. No new events overnight. No LEONARD/neck/chest/abd or gu complaints. No f/c/n/v/d. Objective: NAD, VSS BLE 5/5 BUE 5/5 Sensation intact to lt touch Incision c/d/i MICHELE site clean Neuro Check Frequency: per routine Urinary Catheter in Place: No Catheter Insertion Date: 03/21/16 - Physician Discussed Patient with : Madai Neurosurgery Physical Exam - Vitals, I&O, Labs I and O 04/01/16 04/02/16 04/03/16 05:59 05:59 05:59 Intake Total 850 1100 Output Total 450 850 Balance 400 250 Intake: Oral (ml) 850 1100 Output: Urine (ml) 450 850 Catheter 450 500 Incontinence 350 Other: Number of Voids Incontinence 1 Number of Stools Incontinence 1 Vital Signs Temp Pulse Resp BP Pulse Ox 37.0 C 90 18 133/78 H 92 04/02/16 00:00 04/02/16 00:00 04/02/16 00:00 04/02/16 00:00 04/02/16 00:00 Laboratory Results 03/30/16 12:50 03/30/16 12:50 ICD10 Worksheet Patient Problems: Problems Problem Status Onset Renal cell carcinoma Acute
[2016-04-02] MEDS: ENOXAPARIN 40 MG/0.4 ML SYR SC SCH (08:22)
[2016-04-02] MEDS: FAMOTIDINE 20 MG TAB PO SCH ×2 (08:25→21:28)
[2016-04-02] MEDS: POLYETHYLENE GLYCOL 3350 17 GM PKT PO SCH ×3 (08:26→21:29)
[2016-04-02] MEDS: SENNOSIDES/DOCUSATE SODIUM TAB PO SCH ×2 (08:26→21:27)
[2016-04-02] MEDS: METHOCARBAMOL 750 MG TAB PO PRN ×2 (11:38→21:43)
[2016-04-03] MEDS: HYDROCODONE/APAP 10/325 TAB PO PRN ×5 (04:58→22:06)
--- NOTE | 2016-04-03 07:49 | SOAPPROG ---
Downtime Inpatient MD Late Entry SOAP Note: Late entry progress note used d/t EMR error. Patient seen 7:47 AM on 04/03/16 Assessment: 50 yo male with metastatic transitional renal CA POD #6 s/p T11-L3 decompression/fusion with L1 corpectomy Plan: -neuro stable, pain currently controlled -rested thru night -xrays pending -encourage nutritional intake -pathology - uroepithelial/transitional cell CA, c/w prior diagnosis -PT/OT-CPM. Encourage OOB to chair today -CDI -discussed with Dr. Aj -JUVENAL for DC once placement obtained, likely inpatient rehab -call with any questions or concerns S: Pt resting in bed, states he is feeling stronger each day O: AAOx3 NAD VSS MAEx4 Motor 5/5 BLE +LT Incision dressed
[2016-04-03] MEDS: ENOXAPARIN 40 MG/0.4 ML SYR SC SCH (07:58)
[2016-04-03] MEDS: FAMOTIDINE 20 MG TAB PO SCH ×2 (07:59→22:06)
[2016-04-03] MEDS: METHOCARBAMOL 750 MG TAB PO PRN ×3 (07:59→22:06)
[2016-04-03] MEDS: SENNOSIDES/DOCUSATE SODIUM TAB PO SCH ×2 (07:59→22:06)
[2016-04-03] MEDS: POLYETHYLENE GLYCOL 3350 17 GM PKT PO SCH ×3 (09:01→23:36)
[2016-04-04 01:39] VITALS: TEMP 98.7
[2016-04-04] MEDS: HYDROCODONE/APAP 10/325 TAB PO PRN ×3 (03:10→12:49)
[2016-04-04] MEDS: DIAZEPAM 5 MG TAB PO PRN ×2 (03:10→12:55)
[2016-04-04 07:48] VITALS: BP 123/77; PULSE 84; RESP 20; O2SAT 91
[2016-04-04] MEDS: METHOCARBAMOL 750 MG TAB PO PRN (08:13)
[2016-04-04] MEDS: ENOXAPARIN 40 MG/0.4 ML SYR SC SCH (08:13)
[2016-04-04] MEDS: POLYETHYLENE GLYCOL 3350 17 GM PKT PO SCH (08:13)
[2016-04-04] MEDS: SENNOSIDES/DOCUSATE SODIUM TAB PO SCH (08:13)
[2016-04-04] MEDS: FAMOTIDINE 20 MG TAB PO SCH (08:13)
--- NOTE | 2016-04-04 08:16 | SOAPPROG ---
Downtime Inpatient MD Late Entry SOAP Note: Late entry progress note used d/t EMR error. Patient seen 0730 AM on 04/04/16 Assessment: 50 yo male with metastatic transitional renal CA POD #7 s/p T11-L3 decompression/fusion with L1 corpectomy Plan: -neuro stable, pain currently controlled -xrays demonstrate intact hardware without evidence of failure -encourage nutritional intake -pathology - uroepithelial/transitional cell CA, c/w prior diagnosis -PT/OT-CPM. Encourage OOB to chair today -CDI -discussed with Dr. Aj -Incisional dressing change today. -OK for DC once placement obtained, likely inpatient rehab -call with any questions or concerns S: Pain is tolerable with medications, is able to urinate on his own. O: AAOx3 NAD VSS MAEx4 Motor 5/5 BLE +LT Incision c/d/i
--- NOTE | 2016-04-04 12:27 | PDIAF ---
- Diagnosis Code Status: Full Code - Medication Management Discharge Medications: Medications to Continue on Transfer Acetaminophen [Tylenol ES 500 mg (*)] 500 mg PO Q3-4PRN PRN 03/21/16 [Last Taken 03/21/16 500MG] Discharge Medications: Refer to the Discharge Home Medication list for PRN reason. - Orders Services needed: Registered Nurse, Physical Therapy, Occupational Therapy - Follow Up Care Current Providers and Referrals: Patient,NotPresent [Primary Care Provider] -
== END 2016-04-04 13:38 | DRG 457 ==
LOC: F3N 13:26 → F2N 03-27 13:55 → F3N 03-27 14:44 → F2N 03-28 10:22 → F3N 04-01 18:36
PROVIDERS: ADMIT Neurological Surgery; ATTEND Neurological Surgery
PROC: 04L03DZ Occlusion of Abdominal Aorta with Intraluminal Device, Percutaneous Approach (ICD-10-PCS; 2016-03-27)
PROC: B31M1ZZ Fluoroscopy of Spinal Arteries using Low Osmolar Contrast (ICD-10-PCS; 2016-03-27)
PROC: B4191ZZ Fluoroscopy of Lumbar Arteries using Low Osmolar Contrast (ICD-10-PCS; 2016-03-27)
PROC: 00NX0ZZ Release Thoracic Spinal Cord, Open Approach (ICD-10-PCS; principal; 2016-03-28 07:15)
PROC: 0QS004Z Reposition Lumbar Vertebra with Internal Fixation Device, Open Approach (ICD-10-PCS; principal; 2016-03-28 07:15)
PROC: 0RG7071 Fusion of 2 to 7 Thoracic Vertebral Joints with Autologous Tissue Substitute, Posterior Approach, Posterior Column, Open Approach (ICD-10-PCS; principal; 2016-03-28 07:15)
PROC: 0QB00ZX Excision of Lumbar Vertebra, Open Approach, Diagnostic (ICD-10-PCS; principal; 2016-03-28 07:15)
PROC: 0RGA0AJ Fusion of Thoracolumbar Vertebral Joint with Interbody Fusion Device, Posterior Approach, Anterior Column, Open Approach (ICD-10-PCS; principal; 2016-03-28 07:15)
PROC: 0SG1071 Fusion of 2 or more Lumbar Vertebral Joints with Autologous Tissue Substitute, Posterior Approach, Posterior Column, Open Approach (ICD-10-PCS; principal; 2016-03-28 07:15)
PROC: 00BY0ZZ Excision of Lumbar Spinal Cord, Open Approach (ICD-10-PCS; principal; 2016-03-28 07:15)
PROC: 00NY0ZZ Release Lumbar Spinal Cord, Open Approach (ICD-10-PCS; principal; 2016-03-28 07:15)
PROC: 00BX0ZZ Excision of Thoracic Spinal Cord, Open Approach (ICD-10-PCS; principal; 2016-03-28 07:15)
DX: M84.48XA Pathological fracture, other site, initial encounter for fracture (principal); C79.51 Secondary malignant neoplasm of bone; G95.29 Other cord compression; C64.9 Malignant neoplasm of unspecified kidney, except renal pelvis; Z85.51 Personal history of malignant neoplasm of bladder
CPT/HCPCS: 97116-GP; 97163-GP; 97166-GO; 97530-GO; 97530-GP; 97535-GO; A9585; C1713; C1769; C1894; G8978-GP-CM; G8979-GP-CJ; G8987-GO-CM; G8988-GO-CJ; J0690; J1100; J1170; J1644; J1650; J2001; J2250; J2370; J2405; J2704; J2765; J2780; J3010; Q9967

== ENCOUNTER 2016-04-04 14:04 | Inpatient (IN) | payer OTHER ==
[2016-04-04] MEDS ORDERED: POLYETHYLENE GLYCOL 3350 17 GM PKT PO PRN (14:39)
[2016-04-04] MEDS ORDERED: ONDANSETRON DISINTEGRATING 4 MG TAB PO PRN (14:45)
[2016-04-04] MEDS ORDERED: DIAZEPAM 5 MG TAB PO PRN (14:45)
[2016-04-04] MEDS ORDERED: ACETAMINOPHEN 325 MG TAB PO PRN (14:45)
[2016-04-04] MEDS ORDERED: HYDROmorphONE/DILAUDID 2 MG TAB PO PRN (14:45)
--- NOTE | 2016-04-04 14:49 | PDOREHIP ---
Admission [facility] - Admission - 3 Day Assessment Period Admission Date/Day 1: 04/04/16 Day 2: 04/05/16 Day 3: 04/06/16 - Active Diagnoses Comorbidities and Co-existing Conditions at Admission: 43819. None of the Above - Skin Conditions Unhealed Pressure Ulcer (1 or more/Stage 1 or >)-Admission: 0. No
--- NOTE | 2016-04-04 16:11 | GHP ---
[f rep st] HISTORY AND PHYSICAL POST ADMISSION PHYSICIAN EVALUATION AND REHABILITATION TREATMENT PLAN DATE OF ADMISSION: 04/04/2016 DATE OF EVALUATION: 04/04/2016. TIME OF EVALUATION: 1430. REFERRING FACILITY: [facility]. REFERRING PHYSICIAN: Aris Aj MD IMPAIRMENT GROUP: [id number] DATE OF ONSET: 03/21/2016. CONSULTING PHYSICIANS: There were none. REHABILITATION DIAGNOSIS: Debility following surgery for pathologic fracture in the lumbar spine. ETIOLOGIC DIAGNOSIS: Other nontraumatic spinal cord dysfunction. DATE OF SURGERY: 03/28/2016. HISTORY OF PRESENT ILLNESS: Mr. Mcclendon is a 50-year-old man with history of renal cell carcinoma. He has not had chemotherapy or radiation for it and it was diagnosed in the fall. He was admitted to [facility] on 04/2016, having been transferred from [facility]. He had presented there with lower extremity weakness and severe back pain. 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 He came to [place] for the availability of radiologic embolization of the tumor which was done prior to surgery in order to reduce bleeding. The embolization was done on 03/27/2016. The resection of the tumor was done on 03/28/2016 with L1 corpectomy and T11-L3 decompression and fusion. An MRI was done at [facility] on 03/19/2016 which showed severe pathologic fracture of the L1 vertebral body resulting in retropulsion and soft tissue tumor bulging into the ventral epidural space with severe spinal canal stenosis and compression of the conus. There was also significant tumor involvement seen in the retroperitoneum, more so on the right than the left side and mild bone metastasis at L2. STUDIES AND LABS IN THE HOSPITAL: A CBC on 03/26 showed mild anemia with a hemoglobin of 12.6 and a hematocrit of 39.1 and on 03/30 showed worsening of the anemia, likely due to surgical blood loss, with a hemoglobin of 9.5 and a hematocrit of 29.8. He had an elevated white count of 12.21. Serum chemistry both on 03/26 and 03/30 revealed overall normal renal function and electrolytes. On 03/30 he had a minor elevation of blood sugars at 109 but this was likely not fasting. Imaging after surgery showed intact hardware and no complications on thoracic and lumbar spine x-ray on 04/03; additionally lumbar spine MRI on 03/28 did not show any significant complications. PRECAUTIONS: He is a fall risk. He has orthopedic spinal precautions for the back. ACTIVE COMORBIDITIES: He has no active tier 1, tier 2, or tier 3 comorbidities. PAST MEDICAL HISTORY: Only the transitional cell cancer of the kidney. PAST SURGICAL HISTORY: He had a vasectomy. He has had a bladder biopsy and cystoscopy. PRE-HOSPITAL MEDICATIONS: 1. Diazepam 5 mg p.o. p.r.n. 2. Docusate 1 p.o. b.i.d. ADMISSION MEDICATIONS: 1. Acetaminophen 325-650 mg p.o. q.4 hours p.r.n. 2. Acetaminophen/hydrocodone 10/325 one to two tabs p.o. q.6 hours p.r.n. 3. Diazepam 2.5-5 mg p.o. q.i.d. p.r.n. spasms. 4. Enoxaparin 40 mg subcutaneous q. day. 5. Hydromorphone 2 mg p.o. q.4 hours p.r.n. pain. 6. Methocarbamol 750 mg p.o. q.i.d. p.r.n. spasms. 7. Ondansetron 4 mg p.o. q.6 hours p.r.n. 8. Polyethylene glycol 17 g p.o. q. day p.r.n. constipation. ALLERGIES: Allergies are listed to ondansetron with a burning sensation in his stomach and to opioids. FAMILY HISTORY: Noncontributory. PSYCHOSOCIAL HISTORY: He is . He lives with his and her son and [id number]. He has children who are adults and live out of the house. He has been working as a director software. He is a nonsmoker and nondrinker. REVIEW OF SYSTEMS: He reports his pain is currently 4/10. He would like it to be 3/10 or better to have sufficient pain control for sleep and to participate in therapies. He has had significant weight loss and documented in the chart since an emergency department visit last October is a 50-pound weight loss. He reports his appetite is good. He has no nausea, vomiting, constipation, or diarrhea. He has no cough or dyspnea. No fevers or chills. No chest pain or palpitations. No joint pain or joint swelling. No dysuria or urinary frequency and otherwise a 10-point review of systems is negative. PHYSICAL EXAM: VITAL SIGNS: Not yet recorded in the chart at the inpatient rehabilitation facility. This morning at [facility] his blood pressure was 123/77, his heart rate was 84, his respiratory rate was 20, oxygen saturation was 91% on room air, temperature was 37.1 degrees centigrade, his weight was 54.4 kg for a body mass index of 18.2. GENERAL: This is a cachectic male, somewhat unkempt, sleepy, cooperative and in no acute distress. HEENT: Extraocular movements are intact. Pupils are equal, round, and reactive to light and accommodation. Mucous membranes are moist. Dentition is in good condition. NECK: Supple. HEART: There is a regular rate and rhythm with no murmurs, rubs, or gallops. LUNGS: Clear to auscultation bilaterally. ABDOMEN: Soft. There is some tenderness at the left upper quadrant. It is nondistended with normoactive bowel sounds. EXTREMITIES. There is no cyanosis or clubbing. There is mild edema to the feet. Radial and dorsalis pedis pulses are 2+ bilaterally. NEUROLOGIC: He is somewhat sleepy but easily aroused. Slow to respond when he is more sleepy. Otherwise normal responsiveness. Oriented x3. Cranial nerves 2-12 are grossly intact. On the motor exam, upper extremities are 5/5 bilaterally. In the lower extremities his hip flexor on the left is 4/5 and otherwise hip flexors, hamstrings and quadriceps are 5/5 bilaterally. Sensation is intact to light touch. Deep tendon reflexes are 2+ bilaterally at the biceps, and are 3 to 4+ at the patellar and Achilles tendons. Plantar reflex is downgoing. CURRENT LEVEL OF FUNCTION PER THE PREADMISSION SCREEN: Regarding diet, feeding , and swallowing he was on a regular diet with no dysphagia. Regarding grooming he required setup and total care is listed. For dressing he required max assistance for upper body and lower body with voice cuing. He needed a business objects report developer to don his undergarments. For toileting he required max assistance to total assistance. For bladder he had 1 episode of incontinence in 7 days. Bowel was continent. Bed mobility required moderate assistance. Transfers required minimal assistance with voice cuing using a front-wheeled walker. Balance was contact guard to minimal assist. His endurance was fair. Gait: He walked 20 feet x2 with minimal assistance and voice cuing to keep his knees straight. His gait was slow with short steps. IMPRESSION: The patient is a 50-year-old man with untreated renal cell carcinoma and considerable weight loss who presented to the hospital with significant back pain and was diagnosed with an L1 pathologic fracture. He underwent embolization of the tumor and then surgical excision of the corpus of the L1 vertebral body. Spine was stabilized with T11 through L3 decompression and fusion. He came through surgery well and is appropriate for inpatient rehabilitation. He will benefit from physical and occupational therapies to optimize his mobility and independence with activities of daily living. Additionally, he needs close medical supervision regarding pain control, risk for infection, risk for thromboembolism, changes in neurologic status, anemia, and pain management. He will require close nursing care regarding fall risk, bowel and bladder, neurologic education and medication education. His goal is to complete inpatient rehabilitation and return home with the assistance of his and supportive services. For a safe discharge it is anticipated he will achieve independence with grooming and bed mobility. He will be modified independence for transfers and ambulation with the least restrictive device for household distances. He may require a wheelchair for longer distances. He will understand pacing techniques. He may continue to require supervision or assistance with dressing and bathing and he will need assistance for household management, meal preparation, and shopping. He will have therapy with physical and occupational therapy for 60-90 minutes each day on 5-7 days of the week. His expected duration of stay is 7-10 days. It is anticipated that upon discharge, he will continue to benefit from home health services, including nursing, a nurse's aide, social work, occupational therapy and physical therapy. ASSESSMENT AND PLAN: 1. Debility status post L1 corpectomy for metastatic transitional cell kidney cancer and T11 to L3 fusion. Physical and occupational therapy to optimize his mobility and activities of daily living. 2. Pain control. We will continue medications as ordered out of the hospital and adjust as needed. 3. Metastatic transitional cell carcinoma of the kidney. With metastatic disease, no history of treatment. cachexia and poor functional status, his prognosis is probably in months. If he can improve his functional status, he woul dbe a candidate for chemotherapy or immunologic therapy, which could extend his life. Records from oncologist David Saucedo. 4. Cachexia, likely due to untreated cancer. We will have a dietary consult. He intends to have CyberKnife radiotherapy after his discharge but at present is not interested in other chemotherapeutic options. 5. Anemia, postsurgical and preexisting. We will optimize his nutrition and monitor his blood counts. 6. Prophylaxis. He will receive enoxaparin for chemoprophylaxis of DVT and he will have RUBÉN hose and sequential compression devices on the legs. /[id number]/MODL MTDD
[2016-04-04] MEDS: HYDROCODONE/APAP 10/325 TAB PO PRN (17:20)
[2016-04-05] MEDS: HYDROCODONE/APAP 10/325 TAB PO PRN ×2 (00:32→07:35)
[2016-04-05] MEDS: METHOCARBAMOL 750 MG TAB PO PRN (00:52)
[2016-04-05] MEDS: ENOXAPARIN 40 MG/0.4 ML SYR SC SCH (07:35)
--- NOTE | 2016-04-05 11:20 | SOAPPROG ---
SOAP Progress Note Assessment/Plan: Assessment: 50 yo M with untreated transitional cell CA of kidney with spinal metastases and pathologic fracture of L1, s/p tumkor embolization on 03/27/16 and L1 corpectomy and T11 - L3 decompression and fusion on 03/28/16: * Debility status post L1 corpectomy for metastatic transitional cell kidney cancer and T11 to L3 fusion. Physical and occupational therapy to optimize his mobility and activities of daily living. * Pain control. Add morphine SR at bedtime. Increase dosing frequency of PRN opiates: hydromorphone to Q 3 hr PRN. * Urinary urgency: initiate timed voiding Q 4 hr. * Metastatic transitional cell carcinoma of the kidney. With metastatic disease , no history of treatment, cachexia and poor functional status, his prognosis is probably in months. If he can improve his functional status, he would be a candidate for chemotherapy or immunologic therapy, which could extend his life. Records have been requested from oncologist David Saucedo. * Cachexia, likely due to untreated cancer. We will have a dietary consult. He intends to have CyberKnife radiotherapy after his discharge but at present is not interested in other chemotherapeutic options. * Anemia, postsurgical and preexisting. We will optimize his nutrition and monitor his blood counts. * Prophylaxis. He will receive enoxaparin for chemoprophylaxis of DVT and he will have RUBÉN hose and sequential compression devices on the legs. 04/05/16 12:18 Subjective: Interrupted sleep last night. Describes urinary urgency and hand-held urinal being out of reach.. Had pain in the morning; given [place] X 1 at 7:30 and hydromorphone about 2 hr later. O/W w/out complaint. No f/c, dyspnea, cough, n /v/d/c, dysuria. Objective: Vital Signs Temp Pulse Resp BP Pulse Ox 36.4 C 101 H 18 90/58 L 96 04/05/16 08:00 04/05/16 08:00 04/05/16 08:00 04/05/16 08:00 04/05/16 08:00 04/04/16 04/05/16 04/06/16 05:59 05:59 05:59 Intake Total 480 Output Total 600 550 Balance -120 -550 Physical Exam - Physical Exam General Appearance: alert, no apparent distress, cachetic Respiratory: normal breath sounds, No crackles, No rhonchi, No wheezing Cardiac/Chest: regular rate, rhythm, No edema Skin: normal color, warm/dry Neuro/Psych: alert, normal mood/affect, oriented x 3 ICD10 Worksheet Patient Problems: Problems Problem Status Onset Renal cell carcinoma Acute
[2016-04-05] MEDS: HYDROmorphONE/DILAUDID 2 MG TAB PO PRN ×2 (13:18→19:08)
[2016-04-05] MEDS: morphINE SR 15 MG TAB PO SCH (20:51)
[2016-04-06] MEDS: HYDROCODONE/APAP 10/325 TAB PO PRN ×2 (02:56→10:48)
[2016-04-06] MEDS: HYDROmorphONE/DILAUDID 2 MG TAB PO PRN ×3 (06:24→17:14)
[2016-04-06] MEDS: ENOXAPARIN 40 MG/0.4 ML SYR SC SCH (08:03)
--- NOTE | 2016-04-06 12:24 | SOAPPROG ---
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 Physical and occupational therapy to optimize his mobility and activities of daily living. * Pain control. Add morphine SR at bedtime. Increase dosing frequency of PRN opiates: hydromorphone to Q 3 hr PRN. * Urinary urgency: initiate timed voiding Q 4 hr. * Metastatic transitional cell carcinoma of the kidney. With metastatic disease , no history of treatment, cachexia and poor functional status, his prognosis is probably in months. If he can improve his functional status, he would be a candidate for chemotherapy or immunologic therapy, which could extend his life. Records have been requested from oncologist David Saucedo. * Fatigue. Trial of trazodone at bedtime. * Existential despair. Consult with headend technician. He requests Jain. * Cachexia, likely due to untreated cancer. We will have a dietary consult. He intends to have CyberKnife radiotherapy after his discharge but at present is not interested in other chemotherapeutic options. * Anemia, postsurgical and preexisting. We will optimize his nutrition and monitor his blood counts. * Prophylaxis. He will receive enoxaparin for chemoprophylaxis of DVT and he will have RUBÉN hose and sequential compression devices on the legs. 04/06/16 12:22 Subjective: C/O fatigue. Not sleeping well. Pain is not keeping him awake. Refers to "midlife crisis," "did not expect my life to go this way." Objective: Vital Signs Temp Pulse Resp BP Pulse Ox 36.4 C 78 18 138/78 H 92 04/06/16 06:14 04/06/16 06:14 04/06/16 06:14 04/06/16 06:14 04/06/16 06:14 04/05/16 04/06/16 04/07/16 05:59 05:59 05:59 Intake Total 480 960 Output Total 600 1025 700 Balance -120 -65 -700 Physical Exam - Physical Exam General Appearance: alert, no apparent distress, cachetic Respiratory: No respiratory distress, No accessory muscle use Cardiac/Chest: No edema Skin: normal color, warm/dry Neuro/Psych: alert, normal mood/affect, oriented x 3 ICD10 Worksheet Patient Problems: Problems Problem Status Onset Renal cell carcinoma Acute
[2016-04-06] MEDS: morphINE SR 15 MG TAB PO SCH (20:01)
[2016-04-06] MEDS: traZODone 50 MG TAB PO SCH (21:51)
[2016-04-07] MEDS: HYDROCODONE/APAP 10/325 TAB PO PRN ×4 (01:02→17:48)
[2016-04-07] MEDS: METHOCARBAMOL 750 MG TAB PO PRN (08:26)
[2016-04-07] MEDS: POLYETHYLENE GLYCOL 3350 17 GM PKT PO SCH (08:26)
[2016-04-07] MEDS: HYDROmorphONE/DILAUDID 2 MG TAB PO PRN (08:26)
[2016-04-07] MEDS: ENOXAPARIN 40 MG/0.4 ML SYR SC SCH ×3 (08:26→11:55)
[2016-04-07] MEDS: SENNOSIDES 1 TAB PO PRN ×2 (08:26→17:48)
--- NOTE | 2016-04-07 13:36 | SOAPPROG ---
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 Initial FIM 72 on 04/07/16. Needs min A for bed mobility, CGA for t'fers. Walked 40' very slowly with FWW. Continue physical and occupational therapy to optimize his mobility and activities of daily living. * Pain control. Added morphine SR at bedtime starting 04/06/16. Increase dosing frequency of PRN opiates: hydromorphone to Q 3 hr PRN. * Urinary urgency: initiate timed voiding Q 4 hr. * Metastatic transitional cell carcinoma of the kidney. With metastatic disease , no history of treatment, cachexia and poor functional status, his prognosis is probably in months. He intends to pursue XRT, which could provide local symptom management but would not control cancer. If he can improve his functional status, he would be a candidate for chemotherapy or immunologic therapy, which could extend his life. Otherwise he is a candidate for hospice. Records have been requested from oncologist David Saucedo. * Fatigue. Trial of trazodone at bedtime. May have cognitive impairment as well, with errors re meds received and possibly re diarrhea. D/C diazepam and methocarbamol. * Existential despair. Consult with host and hostess. He requests Caodaism. * Cachexia, likely due to untreated cancer. We will have a dietary consult. * Anemia, postsurgical and preexisting. We will optimize his nutrition and monitor his blood counts. * Prophylaxis. He will receive enoxaparin for chemoprophylaxis of DVT and he will have RUBÉN hose and sequential compression devices on the legs. Attended staffing, 15 min. D/W case mgmt, nursing, PT, OT. 3 [address], ranch house with basement, can live on one level; available to assist. Tentative discharge set for 04/16/16. 04/07/16 13:36 Subjective: Sleepy this morning. Reports episode of diarrhea that interfered with sleep last night. Concerned re sedating effect of pain meds. Syas he took Valium last night but this is not on the APR. Objective: Vital Signs Temp Pulse Resp BP Pulse Ox 36.6 C 84 16 117/67 93 04/07/16 06:37 04/07/16 06:37 04/07/16 06:37 04/07/16 06:37 04/07/16 06:37 04/06/16 04/07/16 04/08/16 05:59 05:59 05:59 Intake Total 1460 740 450 Output Total 1025 1401 650 Balance 204 -024 -821 - Time Spent With Patient Time Spent With Patient: Greater than 35 minutes floor time today, including more than 50% of time in coordination of care during staffing meeting, and counseling patient. Physical Exam - Physical Exam General Appearance: alert, no apparent distress, cachetic Respiratory: normal breath sounds, No crackles, No rhonchi, No wheezing Cardiac/Chest: regular rate, rhythm, No edema Neuro/Psych: alert, normal mood/affect ICD10 Worksheet Patient Problems: Problems Problem Status Onset Renal cell carcinoma Acute
[2016-04-07] MEDS: morphINE SR 15 MG TAB PO SCH (21:12)
[2016-04-07] MEDS: traZODone 50 MG TAB PO SCH (21:22)
[2016-04-08] MEDS: ENOXAPARIN 40 MG/0.4 ML SYR SC SCH (08:18)
[2016-04-08] MEDS: POLYETHYLENE GLYCOL 3350 17 GM PKT PO SCH (08:18)
[2016-04-08] MEDS: HYDROCODONE/APAP 10/325 TAB PO PRN ×2 (08:36→14:56)
--- NOTE | 2016-04-08 12:24 | SOAPPROG ---
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 Initial FIM 72 on 04/07/16. Needs min A for bed mobility, CGA for t'fers. Walked 40' very slowly with FWW. Continue physical and occupational therapy to optimize his mobility and activities of daily living. * Pain control. Added morphine SR at bedtime starting 04/06/16. Increase dosing frequency of PRN opiates: hydromorphone to Q 3 hr PRN. * Urinary urgency: initiate timed voiding Q 4 hr. * Metastatic transitional cell carcinoma of the kidney. With metastatic disease , no history of treatment, cachexia and poor functional status, his prognosis is probably in months. He intends to pursue XRT, which could provide local symptom management but would not control cancer. If he can improve his functional status, he would be a candidate for chemotherapy or immunologic therapy, which could extend his life. Otherwise he is a candidate for hospice. Records have been requested from oncologist David Saucedo. * Fatigue. Trial of trazodone at bedtime (refused by 04/07/16). May have cognitive impairment as well. * Existential despair. Consult with friction saw operator. He requests Yarsani. * Cachexia, likely due to untreated cancer. We will have a dietary consult. * Anemia, postsurgical and preexisting. We will optimize his nutrition and monitor his blood counts. * Prophylaxis. He will receive enoxaparin for chemoprophylaxis of DVT and he will have RUBÉN hose and sequential compression devices on the legs. 3 [address]UAN, ranch house with basement, can live on one level; available to assist. Tentative discharge set for 04/16/16. 04/08/16 12:22 Subjective: Fatigued today amelia after shower. Says he slept well last night but nurse reports 5 hours. Not in pain at present. No f/c, cough/dyspnea. Objective: Vital Signs Temp Pulse Resp BP Pulse Ox 36.7 C 95 18 119/69 96 04/08/16 08:00 04/08/16 08:00 04/08/16 08:00 04/08/16 08:00 04/08/16 08:00 04/07/16 04/08/16 04/09/16 05:59 05:59 05:59 Intake Total 740 450 Output Total 1401 1250 Balance -661 -800 Physical Exam - Physical Exam General Appearance: alert, no apparent distress, cachetic Respiratory: normal breath sounds, No crackles, No rhonchi, No wheezing Cardiac/Chest: regular rate, rhythm, No edema Skin: normal color, warm/dry Neuro/Psych: alert, normal mood/affect, other (vague historian) ICD10 Worksheet Patient Problems: Problems Problem Status Onset Renal cell carcinoma Acute
[2016-04-08 16:10] LABS: % IMMATURE GRANULYOCYTES 1.2 % (0.0-1.1); ABSOLUTE IMMATURE GRANULOCYTES 0.15 10^3/uL (0.00-0.10); ADD DIFF? NO; ADD MORPH? NO; ADD SCAN? NO; ATYPICAL LYMPHOCYTE FLAG 10 (0-99); FRAGMENT RBC FLAG 0 (0-99); HEMATOCRIT 26.4 % (40.0-51.0); HEMOGLOBIN 8.3 g/dL (13.7-17.5); LEFT SHIFT FLG 20 (0-99); LIPEMIA HEMOLYSIS FLAG 80 (0-99); MEAN CELL HEMOGLOBIN 28.9 pg (27.9-34.1); MEAN CELL HEMOGLOBIN CONCENTR. 31.4 g/dL (32.4-36.7); MEAN PLATELET VOLUME 8.8 fL (8.7-11.7); PLATELET CLUMPS FLAG 0 (0-99); PLATELET COUNT 533 10^3/uL (150-400); RED BLOOD CELL COUNT 2.87 10^6/uL (4.40-6.38); RED CELL DISTRIBUTION WIDTH 14.1 % (11.5-15.2)
[2016-04-08 16:31] LABS: ALANINE AMINOTRANSFERASE 25 IU/L (21-72); ALBUMIN 2.8 g/dL (3.5-5.0); ALKALINE PHOSPHATASE 100 IU/L (38-126); ANION GAP 10 mEq/L (8-16); ASPARTATE AMINOTRANSFERASE 21 IU/L (17-59); BILIRUBIN,TOTAL 0.5 mg/dL (0.1-1.4); CALCIUM 10.4 mg/dL (8.5-10.4); CARBON DIOXIDE 28 mEq/l (22-31); CHLORIDE 93 mEq/L (97-110); CREATININE 0.9 mg/dL (0.7-1.3); GLOMERULAR FILTRATION RATE > 60; GLUCOSE 106 mg/dL (70-100); POTASSIUM 4.7 mEq/L (3.5-5.2); SODIUM 131 mEq/L (134-144); TOTAL PROTEIN 6.4 g/dL (6.3-8.2)
[2016-04-08] MEDS: morphINE SR 15 MG TAB PO SCH (20:10)
[2016-04-09] MEDS: traZODone 50 MG TAB PO SCH (00:12)
[2016-04-09] MEDS: HYDROCODONE/APAP 10/325 TAB PO PRN ×3 (09:08→18:13)
[2016-04-09] MEDS: ENOXAPARIN 40 MG/0.4 ML SYR SC SCH (09:09)
[2016-04-09] MEDS: POLYETHYLENE GLYCOL 3350 17 GM PKT PO SCH (09:26)
--- NOTE | 2016-04-09 10:21 | SOAPPROG ---
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 Initial FIM 72 on 04/07/16. Needs min A for bed mobility, CGA for t'fers. Walked 40' very slowly with FWW. Participation limited primarily by fatigue; also by pain. Continue physical and occupational therapy to optimize his mobility and activities of daily living. * Pain control. Added morphine SR at bedtime starting 04/06/16; d/c 04/09/16 at patient's request. Continue hydromorphone to Q 3 hr PRN; change [place] 10/325 from Q 6 hr PRN to Q 4 hr PRN; consider scheduling [place] depending on how he does. * Fatigue. Trial of trazodone at bedtime; refused by 04/07/16 and he did not take it 04/08/16. Encouraged to try tonight 04/09/16. Labs with mild hyponatremia with Na 131; TSH wnl. * Urinary urgency: initiate timed voiding Q 4 hr. Bladder scan wnl; UA c/w UTI. * UTI: initiate ciprofloxacin 250 mg BID today 04/09/16; continue 7 days; await C & S. * Hyponatremia. Check u Osm, S osm and U Na, r/o SIADH. * Anemia, Hgb 8.3; was 9.5 post-surgery on 03/30/16. Appropriate reticulocytosis. Hemoccult stool. * Leukocytosis: due to reactive bone marrow with anemia? No S/Sx pneumonia. Check UA. * Metastatic transitional cell carcinoma of the kidney. With metastatic disease , no history of treatment, cachexia and poor functional status, his prognosis is probably in months. He intends to pursue XRT, which could provide local symptom management but would not control cancer. If he can improve his functional status, he would be a candidate for chemotherapy or immunologic therapy, which could extend his life. Otherwise he is a candidate for hospice. * Existential despair. Consult with steam table attendant. He requests [employer]. * Cachexia, likely due to untreated cancer. We will have a dietary consult. * Prophylaxis. He will receive enoxaparin for chemoprophylaxis of DVT and he will have RUBÉN hose and sequential compression devices on the legs. [address] [place], ranch house with basement, can live on one level; available to assist. Tentative discharge set for 04/16/16. 25 minute discussion with social work nurse, patient and re cancer prognosis and treatment. was overbearing and insistent re XRT treatment per Dr. Soheila Luna; discussed going to [place] to see "kidney specialist;" will likely not accept home care PT, OT, RN; not open to chemoRx; not open to information re prognosis. pick up worker will attempt to coordinate outpatient therapy plan with Dr. Luna. 04/09/16 13:35 Subjective: C/O abdominal pain across lower abdomen. No N/V/C/D, no dysuria. No fevers/ chills, no cough/dyspnea. Reduced appetite. Has dry mouth and takes frequent sips. C/O racing thoughts and poor sleep overnight. Did not take trazodone. Thinks the long-acting morphine was affecting his thoughts. Objective: Vital Signs Temp Pulse Resp BP Pulse Ox 36.9 C 92 16 117/76 94 04/09/16 06:10 04/09/16 06:10 04/09/16 06:10 04/09/16 06:10 04/09/16 06:10 Laboratory Results 04/08/16 14:20 04/08/16 14:20 04/08/16 04/09/16 04/10/16 05:59 05:59 05:59 Intake Total 450 1020 Output Total 1250 600 Balance -800 420 - Time Spent With Patient Time Spent With Patient: Greater than 35 minutes floor time today, including more than 50% of time in counseling during meeting with patient, and social work nurse, Physical Exam - Physical Exam General Appearance: alert, no apparent distress, cachetic Respiratory: normal breath sounds, No crackles, No rhonchi, No wheezing Cardiac/Chest: regular rate, rhythm, edema (trace - 1+ B LE) Abdomen: normal bowel sounds, soft, No distended, No guarding (mild tenderness LLQ & RLQ) Neuro/Psych: no motor/sensory deficits, alert, normal mood/affect, oriented x 3 ICD10 Worksheet Patient Problems: Problems Problem Status Onset Renal cell carcinoma Acute
[2016-04-09 11:18] LABS: HEMATOCRIT 27.1 % (40.0-51.0)
[2016-04-09 11:39] LABS: COLOR YELLOW; LEUKOCYTE ESTERASE,URINE 3+ (NEGATIVE); NITRITE,URINE POSITIVE (NEGATIVE)
[2016-04-09 11:58] LABS: AMORPHOUS PRESENT /hpf (NONE-1+); BACTERIA NONE SEEN /hpf (NONE SEEN); MUCUS TRACE /lpf (NONE-1+); RBC,URINE 50-182 /hpf (0-3); WBC,URINE 50-182 /hpf (0-3)
[2016-04-09] MEDS ORDERED: CIPROFLOXACIN 250 MG TAB PO SCH ×2 (13:25→20:00)
[2016-04-09] MEDS: CIPROFLOXACIN 250 MG TAB PO SCH ×2 (14:40→19:39)
[2016-04-10] MEDS: traZODone 50 MG TAB PO SCH (02:00)
[2016-04-10] MEDS: HYDROCODONE/APAP 10/325 TAB PO PRN ×5 (03:13→19:44)
[2016-04-10] MEDS: ENOXAPARIN 40 MG/0.4 ML SYR SC SCH (08:16)
[2016-04-10] MEDS: POLYETHYLENE GLYCOL 3350 17 GM PKT PO SCH ×2 (08:16→08:18)
[2016-04-10] MEDS: CIPROFLOXACIN 250 MG TAB PO SCH (09:37)
--- NOTE | 2016-04-10 12:44 | SOAPPROG ---
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 Initial FIM 72 on 04/07/16. Needs min A for bed mobility, CGA for t'fers. Walked 40' very slowly with FWW; walked 150' on . Participation limited primarily by fatigue; also by pain. Continue physical and occupational therapy to optimize his mobility and activities of daily living. * Pain control. Added morphine SR at bedtime starting 04/06/16; d/c 04/09/16 at patient's request. Continue hydromorphone to Q 3 hr PRN; change [place] 10/325 from Q 6 hr PRN to Q 4 hr PRN; used 70 mg hydrocodone since 1800 0n 04/09/16, equivalent to 50 - 60 mg morphine PO. * Fatigue/insomnia. Trazodone prescribed but patient is not taking. Discussed other pharmacologic options: does not want benzodiazepine or zolpidem; says melatonin has not worked for him in the past. Continue to offer trazodone. Labs with mild hyponatremia with Na 131; TSH wnl. * Urinary urgency: initiate timed voiding Q 4 hr. Bladder scan wnl; UA c/w UTI. * UTI: initiate prelim Cx with Enterococcus so will d/c ciprofloxacin 250 mg BID started yesterday 04/09/16 and initiate nitrofurantoin 100 mg BID; continue 7 days. Prelim Cx also with GNR; await C & S. * Hyponatremia. Serum osmolality normal; urine osmolality low, urine sodium low. Not C/W SIADH or salt wasting. Recheck BMP 04/11/16 along with fasting cortisol. * Anemia, Hgb 8.3; was 9.5 post-surgery on 03/30/16. Appropriate reticulocytosis. Hemoccult stool neg X 1 on . Recheck CBC in AM . * Leukocytosis: due to reactive bone marrow with anemia? No S/Sx pneumonia. UA c/w UTI. Recheck CBC 04/11/16 to assess for response to Abx.. * Metastatic transitional cell carcinoma of the kidney. With metastatic disease , no history of treatment, cachexia and poor functional status, his prognosis is probably in months. He intends to pursue XRT, which could provide local symptom management but would not control cancer. If he can improve his functional status, he would be a candidate for chemotherapy or immunologic therapy, which could extend his life. Otherwise he is a candidate for hospice. * Existential despair. Consult with exchange underwriting consultant. He requests [employer]. * Cachexia, likely due to untreated cancer. We will have a dietary consult. * Prophylaxis. He will receive enoxaparin for chemoprophylaxis of DVT and he will have RUBÉN hose and sequential compression devices on the legs. [address] [place], ranch house with basement, can live on one level; available to assist. Tentative discharge set for 04/16/16. 25 minute discussion with geriatric social worker, patient and re cancer prognosis and treatment. was overbearing and insistent re XRT treatment per Dr. Soheila Luna; discussed going to [place] to see "kidney specialist;" will likely not accept home care PT, OT, RN; not open to chemoRx; not open to information re prognosis. foster care worker will attempt to coordinate outpatient therapy plan with Dr. Luna and will continue communication with patient re his goals. Follow-up plan d/w [facility] 04/10/16: scheduled for follow-up tomorrow at 9:10 AM. 04/10/16 12:49 Subjective: Continues to have poor sleep. Did not take trazodone last night. Pain adequately controlled. Reduced appetite but taking Glucerna and Ensure, and soome food brought in by . Objective: Vital Signs Temp Pulse Resp BP Pulse Ox 36.9 C 89 16 125/70 H 92 04/10/16 05:48 04/10/16 05:48 04/10/16 05:48 04/10/16 05:48 04/10/16 05:48 Laboratory Results 04/09/16 10:00 04/08/16 14:20 04/09/16 04/10/16 04/11/16 05:59 05:59 05:59 Intake Total 1020 200 Output Total 600 1300 225 Balance 420 -1100 -225 Physical Exam - Physical Exam General Appearance: alert, no apparent distress, cachetic Respiratory: No respiratory distress, No accessory muscle use Skin: normal color, warm/dry, other (Incision thoracic and lumbar spine midline with sutures intact, no dehiscence or drainage, minimal erythema.) Neuro/Psych: alert, normal mood/affect, oriented x 3, other (slow processing) ICD10 Worksheet Patient Problems: Problems Problem Status Onset Renal cell carcinoma Acute
[2016-04-10] MEDS: NITROFURANTOIN MACROBID 100 MG CAP PO SCH ×2 (14:03→20:42)
[2016-04-11] MEDS: HYDROCODONE/APAP 10/325 TAB PO PRN ×4 (01:23→23:40)
[2016-04-11] MEDS: traZODone 50 MG TAB PO SCH ×2 (01:24→21:25)
[2016-04-11] MEDS: HYDROmorphONE/DILAUDID 2 MG TAB PO PRN ×4 (04:48→21:26)
[2016-04-11] MEDS ORDERED: HYDROmorphONE/DILAUDID 2 MG TAB PO ONE (06:30)
[2016-04-11] MEDS: ENOXAPARIN 40 MG/0.4 ML SYR SC SCH (07:56)
[2016-04-11] MEDS: NITROFURANTOIN MACROBID 100 MG CAP PO SCH ×2 (07:58→21:25)
[2016-04-11] MEDS: POLYETHYLENE GLYCOL 3350 17 GM PKT PO SCH ×2 (07:59→16:38)
[2016-04-11 09:20] LABS: % IMMATURE GRANULYOCYTES 0.8 % (0.0-1.1); ABSOLUTE IMMATURE GRANULOCYTES 0.11 10^3/uL (0.00-0.10); ADD DIFF? NO; ADD MORPH? NO; ADD SCAN? NO; ATYPICAL LYMPHOCYTE FLAG 10 (0-99); FRAGMENT RBC FLAG 0 (0-99); HEMATOCRIT 24.2 % (40.0-51.0); HEMOGLOBIN 7.7 g/dL (13.7-17.5); LEFT SHIFT FLG 10 (0-99); LIPEMIA HEMOLYSIS FLAG 80 (0-99); MEAN CELL HEMOGLOBIN 29.5 pg (27.9-34.1); MEAN CELL HEMOGLOBIN CONCENTR. 31.8 g/dL (32.4-36.7); MEAN CELL VOLUME 92.7 fL (81.5-99.8); MEAN PLATELET VOLUME 8.9 fL (8.7-11.7); PLATELET CLUMPS FLAG 0 (0-99); PLATELET COUNT 534 10^3/uL (150-400); RED BLOOD CELL COUNT 2.61 10^6/uL (4.40-6.38); RED CELL DISTRIBUTION WIDTH 14.4 % (11.5-15.2)
[2016-04-11 09:30] LABS: ANION GAP 9 mEq/L (8-16); CALCIUM 10.5 mg/dL (8.5-10.4); CARBON DIOXIDE 26 mEq/l (22-31); CHLORIDE 95 mEq/L (97-110); CREATININE 0.8 mg/dL (0.7-1.3); GLOMERULAR FILTRATION RATE > 60; GLUCOSE 99 mg/dL (70-100); POTASSIUM 4.9 mEq/L (3.5-5.2); SODIUM 130 mEq/L (134-144)
[2016-04-11 09:59] LABS: CORTISOL-AM 20.6 ug/dL (4.5-22.7)
--- NOTE | 2016-04-11 15:45 | SOAPPROG ---
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 Initial FIM 72 on 04/07/16. Needs min A for bed mobility, CGA for t'fers. Walked 40' very slowly with FWW; walked 150' on . Participation limited primarily by fatigue; also by pain. Continue physical and occupational therapy to optimize his mobility and activities of daily living. * Pain control. Added morphine SR at bedtime starting 04/06/16; d/c'd 04/09/16 at patient's request. Continue hydromorphone to Q 3 hr PRN; change [place] 10/ 325 from Q 6 hr PRN to Q 4 hr PRN; used 70 mg hydrocodone since 1800 0n 04/09/16 , equivalent to 50 - 60 mg morphine PO. * Fatigue/insomnia. Trazodone prescribed but patient is not taking. Discussed other pharmacologic options: does not want benzodiazepine or zolpidem; says melatonin has not worked for him in the past. Continue to offer trazodone. Labs with mild hyponatremia with Na 131; TSH wnl. * Urinary urgency: initiate timed voiding Q 4 hr. Bladder scan wnl; UA c/w UTI. * UTI: initiate prelim Cx with Enterococcus so will d/c ciprofloxacin 250 mg BID started yesterday 04/09/16 and initiated nitrofurantoin 100 mg BID; continue 7 days. 2nd pathogen Pseudomonas: restart Cipro 04/11/16; await sensitivities. * Abdominal pain: Abd XR c/w constipation. Treat with suppository/enema today , and increase PO laxatives. * Hyponatremia. Serum osmolality normal; urine osmolality low, urine sodium low. Not C/W SIADH or salt wasting. Slightly worse 04/11/16 with Na decrease 131 to 130. Initiate salt tablets 1000 mg TID with meals; recheck BMP in AM. * Anemia, Hgb 8.3; was 9.5 post-surgery on 03/30/16. 7.7 on 04/11/16. Appropriate reticulocytosis. Hemoccult stool neg X 2 as of . Recheck CBC in AM 04/12/16. Check iron panel; start PPI 04/11/16. IF continues to decline to below 7.0, would transfuse on unit. Without evidence of GI bleed, will not staoop enoxaparin due to high DVT risk. * Leukocytosis: due to reactive bone marrow with anemia? No S/Sx pneumonia. UA c/w UTI. Recheck CBC 04/12/16, also to assess for response to Abx.. * Metastatic transitional cell carcinoma of the kidney. With metastatic disease , no history of treatment, cachexia and poor functional status, his prognosis is probably in months. He intends to pursue XRT, which could provide local symptom management but would not control cancer. If he can improve his functional status, he would be a candidate for chemotherapy or immunologic therapy, which could extend his life. Otherwise he is a candidate for hospice. * Existential despair. Consult with bicycle messenger. He requests [employer]. * Cachexia, likely due to untreated cancer. We will have a dietary consult. * Prophylaxis. He will receive enoxaparin for chemoprophylaxis of DVT and he will have RUBÉN hose and sequential compression devices on the legs. [address] [facility], ranch house with basement, can live on one level; available to assist. Tentative discharge set for 04/16/16. is overbearing and insistent re XRT treatment per Dr. Soheila Luna; discussed going to [place] to see "kidney specialist;" will likely not accept home care PT, OT, RN; not open to chemoRx; not open to information re prognosis. bench worker binding will attempt to coordinate outpatient therapy plan with Dr. Luna and will continue communication with patient re his goals. 04/11/16 15:56 Subjective: Had severe abd pain this morning, treated with hydromorphone. Went to Neurosurgery follow-up and stitches were removed. No feels "sore" B flanks. Also with fatigue. Was able to accomplish car transfer with . Objective: Vital Signs Temp Pulse Resp BP Pulse Ox 37.2 C 95 16 122/78 H 95 04/11/16 08:00 04/11/16 08:00 04/11/16 08:00 04/11/16 08:00 04/11/16 08:00 Laboratory Results 04/11/16 06:49 04/11/16 06:49 04/10/16 04/11/16 04/12/16 05:59 05:59 05:59 Intake Total 200 1440 Output Total 1300 925 Balance -1100 515 Physical Exam - Physical Exam General Appearance: alert, no apparent distress, cachetic Respiratory: No respiratory distress, No accessory muscle use Cardiac/Chest: No edema Abdomen: normal bowel sounds, soft, other (Tender RLQ & LLQ. NO flank tenderness.), No distended Skin: normal color, warm/dry Neuro/Psych: no motor/sensory deficits, alert, normal mood/affect, oriented x 3 ICD10 Worksheet Patient Problems: Problems Problem Status Onset Renal cell carcinoma Acute
[2016-04-11] MEDS ORDERED: BISACODYL 10 MG SUPP PR PRN (15:52)
[2016-04-11 16:44] LABS: % SATURATION 5 % (20-55); TOTAL IRON BINDING CAPACITY 203 ug/dL (260-490)
[2016-04-11] MEDS: SODIUM CHLORIDE 1,000 MG TAB PO SCH (16:52)
[2016-04-11] MEDS: PANTOPRAZOLE SODIUM 40 MG TAB PO SCH (16:52)
[2016-04-11] MEDS: CIPROFLOXACIN 250 MG TAB PO SCH (21:24)
[2016-04-11] MEDS: SENNOSIDES 1 TAB PO SCH (21:24)
[2016-04-12] MEDS: HYDROmorphONE/DILAUDID 2 MG TAB PO PRN ×3 (06:41→17:36)
[2016-04-12 08:40] LABS: ABSOLUTE IMMATURE GRANULOCYTES 0.09 10^3/uL (0.00-0.10); ADD DIFF? NO; ADD MORPH? NO; ADD SCAN? NO; ATYPICAL LYMPHOCYTE FLAG 10 (0-99); FRAGMENT RBC FLAG 0 (0-99); LEFT SHIFT FLG 10 (0-99); LIPEMIA HEMOLYSIS FLAG 80 (0-99); MEAN CELL HEMOGLOBIN CONCENTR. 30.8 g/dL (32.4-36.7); MEAN CELL VOLUME 94.2 fL (81.5-99.8); MEAN PLATELET VOLUME 8.9 fL (8.7-11.7); PLATELET CLUMPS FLAG 10 (0-99); PLATELET COUNT 499 10^3/uL (150-400); RED BLOOD CELL COUNT 2.76 10^6/uL (4.40-6.38); RED CELL DISTRIBUTION WIDTH 14.3 % (11.5-15.2)
[2016-04-12 09:17] LABS: ANION GAP 8 mEq/L (8-16); CALCIUM 10.8 mg/dL (8.5-10.4); CARBON DIOXIDE 30 mEq/l (22-31); CHLORIDE 94 mEq/L (97-110); CREATININE 0.9 mg/dL (0.7-1.3); GLOMERULAR FILTRATION RATE > 60; GLUCOSE 84 mg/dL (70-100); POTASSIUM 4.8 mEq/L (3.5-5.2); SODIUM 132 mEq/L (134-144)
[2016-04-12] MEDS: SODIUM CHLORIDE 1,000 MG TAB PO SCH ×3 (09:37→17:36)
[2016-04-12] MEDS: NITROFURANTOIN MACROBID 100 MG CAP PO SCH ×2 (09:37→20:18)
[2016-04-12] MEDS: ENOXAPARIN 40 MG/0.4 ML SYR SC SCH (09:37)
[2016-04-12] MEDS: FERROUS SULFATE 325 MG TAB PO SCH (09:37)
[2016-04-12] MEDS: POLYETHYLENE GLYCOL 3350 17 GM PKT PO SCH (09:38)
[2016-04-12] MEDS: HYDROCODONE/APAP 10/325 TAB PO PRN ×3 (09:38→23:59)
[2016-04-12] MEDS: SENNOSIDES 1 TAB PO SCH ×2 (09:38→20:18)
[2016-04-12] MEDS: PANTOPRAZOLE SODIUM 40 MG TAB PO SCH (09:38)
[2016-04-12] MEDS: CIPROFLOXACIN 250 MG TAB PO SCH ×2 (09:38→20:18)
--- NOTE | 2016-04-12 17:32 | SOAPPROG ---
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 Initial FIM 72 on 04/07/16. Needs min A for bed mobility, CGA for t'fers. Walked 40' very slowly with FWW; walked 150' on . Participation limited primarily by fatigue; also by pain. Continue physical and occupational therapy to optimize his mobility and activities of daily living. * Pain control. Added morphine SR at bedtime starting 04/06/16; d/c'd 04/09/16 at patient's request. Continue hydromorphone to Q 3 hr PRN; change [place] 10/ 325 from Q 6 hr PRN to Q 4 hr PRN; used 70 mg hydrocodone since 1800 0n 04/09/16 , equivalent to 50 - 60 mg morphine PO. * Fatigue/insomnia. Trazodone prescribed but patient is not taking. Discussed other pharmacologic options: does not want benzodiazepine or zolpidem; says melatonin has not worked for him in the past. Continue to offer trazodone. Labs with mild hyponatremia with Na 131; TSH wnl. * Urinary urgency: initiate timed voiding Q 4 hr. Bladder scan wnl; UA c/w UTI. * UTI: initiate prelim Cx with Enterococcus so will d/c ciprofloxacin 250 mg BID started yesterday 04/09/16 and initiated nitrofurantoin 100 mg BID; continue 7 days. 2nd pathogen Pseudomonas: restart Cipro 04/11/16; sensitive to both agents. * Abdominal pain: Abd XR c/w constipation. Treating with suppository/enemas and increase PO laxatives. * Hyponatremia. Serum osmolality normal; urine osmolality low, urine sodium low. Not C/W SIADH or salt wasting. Slightly worse 04/11/16 with Na decrease 131 to 130. Initiate salt tablets 1000 mg TID with meals; recheck BMP today with improvement * Anemia, Hgb 8.3; was 9.5 post-surgery on 03/30/16. 7.7 on 04/11/16. Appropriate reticulocytosis. Hemoccult stool neg X 2 as of . Recheck CBC in AM 04/12/16. Check iron panel; start PPI 04/11/16. IF continues to decline to below 7.0, would transfuse on unit. Without evidence of GI bleed, will not staoop enoxaparin due to high DVT risk. * Leukocytosis: due to reactive bone marrow with anemia? No S/Sx pneumonia. UA c/w UTI. CBC with improved Hgb and leukocytosis * Metastatic transitional cell carcinoma of the kidney. With metastatic disease , no history of treatment, cachexia and poor functional status, his prognosis is probably in months. He intends to pursue XRT, which could provide local symptom management but would not control cancer. If he can improve his functional status, he would be a candidate for chemotherapy or immunologic therapy, which could extend his life. Otherwise he is a candidate for hospice. * Existential despair. Consult with drafter electronic. He requests [employer]. * Cachexia, likely due to untreated cancer. We will have a dietary consult. * Prophylaxis. He will receive enoxaparin for chemoprophylaxis of DVT and he will have RUBÉN hose and sequential compression devices on the legs. [employer] [place], ranch house with basement, can live on one level; available to assist. Tentative discharge set for 04/14/16. is overbearing and insistent re XRT treatment per Dr. Soheila Luna; discussed going to [place] to see "kidney specialist;" will likely not accept home care PT, OT, RN; not open to chemoRx; not open to information re prognosis. machine operator hop worker will attempt to coordinate outpatient therapy plan with Dr. Luna and will continue communication with patient re his goals. Subjective: no acute events. no complaints, discussed lab results in detail. Pain well controlled. Objective: Vital Signs Temp Pulse Resp BP Pulse Ox 36.5 C 105 H 16 97/69 L 98 04/12/16 08:00 04/12/16 08:00 04/12/16 08:00 04/12/16 08:00 04/12/16 08:00 Microbiology 04/09/16 11:45 Urine Culture - Final Urine,Clean Catch Pseudomonas Aeruginosa Enterococcus Faecalis Laboratory Results 04/12/16 06:15 04/12/16 06:15 04/11/16 04/12/16 04/13/16 05:59 05:59 05:59 Intake Total 1440 350 480 Output Total 922 650 Balance 515 -300 480 - Pending Discharge Pending Discharge Within 24 Hours: No Pending Discharge Within 48 Hours: Yes Pending Discharge Date: 04/14/16 Pending Discharge Time: 11:00 Physical Exam - Physical Exam General Appearance: alert, no apparent distress Neck: supple Respiratory: lungs clear, normal breath sounds Cardiac/Chest: regular rate, rhythm Abdomen: normal bowel sounds, non-tender, soft Skin: normal color Neuro/Psych: alert, normal mood/affect, oriented x 3, No cognition abnormalities , No speech abnormalities ICD10 Worksheet Patient Problems: Problems Problem Status Onset Renal cell carcinoma Acute
[2016-04-12] MEDS: traZODone 50 MG TAB PO SCH (20:20)
[2016-04-13] MEDS: HYDROCODONE/APAP 10/325 TAB PO PRN ×4 (00:02→20:52)
[2016-04-13] MEDS: HYDROmorphONE/DILAUDID 2 MG TAB PO PRN ×2 (02:55→09:35)
[2016-04-13] MEDS: FERROUS SULFATE 325 MG TAB PO SCH ×2 (09:33→11:14)
[2016-04-13] MEDS: PANTOPRAZOLE SODIUM 40 MG TAB PO SCH (09:33)
[2016-04-13] MEDS: POLYETHYLENE GLYCOL 3350 17 GM PKT PO SCH (09:33)
[2016-04-13] MEDS: NITROFURANTOIN MACROBID 100 MG CAP PO SCH ×2 (09:33→20:54)
[2016-04-13] MEDS: ENOXAPARIN 40 MG/0.4 ML SYR SC SCH (09:33)
[2016-04-13] MEDS: SODIUM CHLORIDE 1,000 MG TAB PO SCH ×3 (09:33→17:27)
[2016-04-13] MEDS: CIPROFLOXACIN 250 MG TAB PO SCH ×2 (09:34→20:53)
[2016-04-13] MEDS: SENNOSIDES 1 TAB PO SCH ×2 (09:34→20:54)
--- NOTE | 2016-04-13 14:27 | SOAPPROG ---
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 Initial FIM 72 on 04/07/16. Needs min A for bed mobility, CGA for t'fers. Walked 40' very slowly with FWW; walked 150' on . Participation limited primarily by fatigue; also by pain. Continue physical and occupational therapy to optimize his mobility and activities of daily living. * Pain control. Added morphine SR at bedtime starting 04/06/16; d/c'd 04/09/16 at patient's request. Continue hydromorphone to Q 3 hr PRN; change [place] 10/ 325 from Q 6 hr PRN to Q 4 hr PRN; used 70 mg hydrocodone since 1800 0n 04/09/16 , equivalent to 50 - 60 mg morphine PO. * Fatigue/insomnia. Trazodone prescribed but patient is not taking. Discussed other pharmacologic options: does not want benzodiazepine or zolpidem; says melatonin has not worked for him in the past. Continue to offer trazodone. Labs with mild hyponatremia with Na 131; TSH wnl. * Urinary urgency: initiate timed voiding Q 4 hr. Bladder scan wnl; UA c/w UTI. * UTI: initiate prelim Cx with Enterococcus so will d/c ciprofloxacin 250 mg BID started yesterday 04/09/16 and initiated nitrofurantoin 100 mg BID; continue 7 days. 2nd pathogen Pseudomonas: restart Cipro 04/11/16; sensitive to both agents. * Abdominal pain: Abd XR c/w constipation. Treating with suppository/enemas and increase PO laxatives. * Hyponatremia. Serum osmolality normal; urine osmolality low, urine sodium low. Not C/W SIADH or salt wasting. Slightly worse 04/11/16 with Na decrease 131 to 130. Initiate salt tablets 1000 mg TID with meals; recheck BMP 04/12 with improvement * Anemia, Hgb 8.3; was 9.5 post-surgery on 03/30/16. 7.7 on 04/11/16. Appropriate reticulocytosis. Hemoccult stool neg X 2 as of . Recheck CBC in AM 04/12/16. Check iron panel; start PPI 04/11/16. IF continues to decline to below 7.0, would transfuse on unit. Without evidence of GI bleed, will not staoop enoxaparin due to high DVT risk. * Leukocytosis: due to reactive bone marrow with anemia? No S/Sx pneumonia. UA c/w UTI. CBC 04/12 with improved Hgb and leukocytosis * Metastatic transitional cell carcinoma of the kidney. With metastatic disease , no history of treatment, cachexia and poor functional status, his prognosis is probably in months. He intends to pursue XRT, which could provide local symptom management but would not control cancer. If he can improve his functional status, he would be a candidate for chemotherapy or immunologic therapy, which could extend his life. Otherwise he is a candidate for hospice. * Existential despair. Consult with snow groomer. He requests [employer]. * Cachexia, likely due to untreated cancer. We will have a dietary consult. * Prophylaxis. He will receive enoxaparin for chemoprophylaxis of DVT and he will have RUBÉN hose and sequential compression devices on the legs. 3 [facility], ranch house with basement, can live on one level; available to assist. Tentative discharge set for 04/14/16. is overbearing and insistent re XRT treatment per Dr. Soheila Luna; discussed going to [place] to see "kidney specialist;" will likely not accept home care PT, OT, RN; not open to chemoRx; not open to information re prognosis. rehabilitation caseworker will attempt to coordinate outpatient therapy plan with Dr. Luna and will continue communication with patient re his goals. Subjective: No events. restricting medication admin. No complaints. Objective: Vital Signs Temp Pulse Resp BP Pulse Ox 36.7 C 95 18 99/70 L 96 04/13/16 08:00 04/13/16 08:00 04/13/16 08:00 04/13/16 08:00 04/13/16 08:00 Microbiology 04/09/16 11:45 Urine Culture - Final Urine,Clean Catch Pseudomonas Aeruginosa Enterococcus Faecalis Laboratory Results 04/12/16 06:15 04/12/16 06:15 04/12/16 04/13/16 04/14/16 05:59 05:59 05:59 Intake Total 350 1020 600 Output Total 650 450 525 Balance -300 570 75 - Pending Discharge Pending Discharge Within 24 Hours: Yes Pending Discharge Within 48 Hours: Yes Pending Discharge Date: 04/14/16 Pending Discharge Time: 11:00 Physical Exam - Physical Exam General Appearance: alert, no apparent distress, cachetic, thin Neck: supple Respiratory: lungs clear Cardiac/Chest: regular rate, rhythm Abdomen: normal bowel sounds Neuro/Psych: alert, normal mood/affect, oriented x 3 ICD10 Worksheet Patient Problems: Problems Problem Status Onset Renal cell carcinoma Acute
[2016-04-13 21:00] VITALS: RESP 16
[2016-04-13] MEDS: traZODone 50 MG TAB PO SCH (22:49)
[2016-04-14] MEDS: HYDROCODONE/APAP 10/325 TAB PO PRN ×3 (04:07→12:34)
[2016-04-14 05:59] VITALS: BP 122/76; PULSE 97; TEMP 97.9; O2SAT 94
[2016-04-14] MEDS: ENOXAPARIN 40 MG/0.4 ML SYR SC SCH ×2 (08:08→08:13)
[2016-04-14] MEDS: SENNOSIDES 1 TAB PO SCH (08:09)
[2016-04-14] MEDS: SODIUM CHLORIDE 1,000 MG TAB PO SCH ×3 (08:09→11:35)
[2016-04-14] MEDS: NITROFURANTOIN MACROBID 100 MG CAP PO SCH (08:09)
[2016-04-14] MEDS: PANTOPRAZOLE SODIUM 40 MG TAB PO SCH (08:09)
[2016-04-14] MEDS: POLYETHYLENE GLYCOL 3350 17 GM PKT PO SCH (08:10)
[2016-04-14] MEDS: FERROUS SULFATE 325 MG TAB PO SCH (08:13)
[2016-04-14] MEDS: CIPROFLOXACIN 250 MG TAB PO SCH (11:17)
--- NOTE | 2016-04-15 17:49 | GDS ---
DISCHARGE DIAGNOSIS: Debility status post L1 corpectomy for metastatic transitional cell carcinoma of the kidney. DISCHARGE DIAGNOSIS: Debility status post L1 corpectomy for metastatic transitional cell carcinoma of the kidney. OTHER DISCHARGE DIAGNOSES: 1. Fatigue/insomnia. 2. Urinary tract infection. 3. Hyponatremia. 4. Iron deficiency anemia. 5. Cachexia. CONSULTATIONS: There were none. PROCEDURES: There were none. COMPLICATIONS: There were none. HISTORY AND HOSPITAL COURSE: The patient underwent surgery for a pathologic fracture of the lumbar spine. The fracture was due to metastatic transitional cell carcinoma of the kidney. His kidney cancer was diagnosed in December of 2015. He had seen oncologist, Dr. David Saucedo of [facility], and had been recommended for chemotherapy but he had opted to not take chemotherapy , rather he was using herbal treatments managed by his . When he arrived on the inpatient rehabilitation unit, he had issues with pain control and urinary urgency. Additionally, he was markedly cachectic and he had anemia. He was able to make some progress in rehabilitation. His initial Functional Weber Measure (FIM) was 72 on 04/07/2016. This is consistent with retirement level of care. He was needing assistance for bed mobility. He was able to walk 40 feet initially very slowly with a front-wheeled walker, but improved to be able to walk 150 feet X 2 with extended rest due to fatigue as of 04/14/2016. His participation in therapy was limited by fatigue and by pain. Regarding pain control, he was started on sustained release morphine 15 mg at bedtime on 04/06/2016. It was discontinued on 04/09/2016 at the patient's request. He was treated with hydrocodone/acetaminophen 10/325 mg on an intermittent basis. He had fatigue and insomnia. Trazodone was prescribed, but the patient refused to take it, nor was he interested in any other pharmacologic options. Further evaluation of the fatigue and insomnia revealed mild hyponatremia with a sodium of 131. His TSH was negative. He was anemic and was markedly iron deficient, though he had some improvement in his blood counts. On 04/11/2016, hemoglobin was 7.7 and hematocrit was 24.2. On 04/12, the next day, hemoglobin was 8 and hematocrit was 26. Iron studies revealed a low iron at 11, a low TIBC at 203, percent saturation of transferrin of 5%. He had an elevated ferritin of 889, which more likely reflected inflammation than iron stores. He was started on ferrous sulfate 325 mg per day, but soon refused to take it reporting that he would get adequate iron out of fruits and vegetables in his diet. Regarding the hyponatremia, he was started on a salt tablet 1000 mg t.i.d. as his hyponatremia was not consistent with SIADH and was more likely nutritional as he had very low p.o. intake. His sodium improved from 130 on 04/11/2016 to 132 on 04/12/2016. A urinary tract infection was diagnosed. Urinalysis was checked due to his urinary urgency. Microbiology revealed Pseudomonas aeruginosa and Enterococcus faecalis, both with a urine colony counts greater than 100,000. Based on susceptibilities, he was treated with nitrofurantoin for the Enterococcus, as well as ciprofloxacin for the Pseudomonas. He had an improvement in his white blood cell count once he was placed on both medications. White cell count declined from 13.23 on 04/11/2016 to a normal 9.27 on 04/12/2016. His preferences regarding current cancer treatment were discussed with the patient and his . His was very insistent that they were only going to do radiation with Dr. Soheila Luna and that there were no other options they were willing to consider, other than possibly traveling to [place] where the reported there was a kidney specialist, who would know more than anyone else about how to treat his cancer. Additionally, the indicated that she would not be welcome to having physical and occupational therapy visits in the home. There was a conversation between the heel caser and Dr. Luna in the hope that Dr. Luna could order physical and occupational therapy in the home as the patient was still quite debilitated and needing assistance upon his hospital discharge. DISCHARGE PLAN: Condition on discharge is fair. Activity is ad bill, but he needs assistance with mobility and activities of daily living. Diet is regular. Date of next appointment: He will follow up with Dr. Audrey Luna as scheduled per . We are not clear as to when this followup will happen. MEDICATIONS UPON DISCHARGE: 1. Polyethylene glycol 17 g p.o. t.i.d. 2. Acetaminophen 325-650 mg q.4 hours p.r.n. 3. Sodium chloride 1000 mg p.o. t.i.d. 4. Senna 1 tablet b.i.d. 5. Pantoprazole 40 mg p.o. daily. 6. Nitrofurantoin 100 mg p.o. b.i.d. through 04/18/2016. 7. Hydromorphone 2 mg p.o. q.4 hours p.r.n. 8. Hydrocodone/acetaminophen 10/325, 1-2 tablets p.o. q.6 hours p.r.n. 9. Ciprofloxacin 250 mg p.o. b.i.d. through 04/18/2016. 10. Ferrous sulfate was not continued as the patient had refused to take it. ISSUES TO BE ADDRESSED AT FOLLOWUP: 1. Transitional cell carcinoma of the kidney. He plans to have radiation therapy. One can hope that Dr. Luna can encourage him to consider chemotherapy for an actual treatment of his cancer. Otherwise his prognosis is poor. 2. Urinary tract infection. He should complete his antibiotic course, and there is no indication for retesting unless he has recurrent symptoms. 3. Cachexia and fatigue likely will not remit without treatment of his cancer. 4. Anemia with marked iron deficiency. Consider retesting in 2-4 weeks and if he remains anemic and iron deficient, perhaps he can be persuaded to take an iron supplement. Copy requested to: Dr. Cullen Murillo #: [id number]
--- NOTE | 2016-04-17 18:27 | PDOREHIP ---
Admission [facility] - Admission - 3 Day Assessment Period Admission Date/Day 1: 04/04/16 Day 2: 04/05/16 Day 3: 04/06/16 Discharge [facility] - Discharge - 3 Day Assessment Period 2 Days Prior to Anticipated Discharge Date: 04/12/16 1 Day Prior to Anticipated Discharge Date: 04/13/16 Anticipated Discharge Date: 04/14/16 - Discharge Skin Conditions Unhealed Pressure Ulcer (1 or more/Stage 1 or >)-Discharge: 0. No
== END 2016-04-14 14:12 | disposition home or self-care (01) | DRG 949 ==
LOC: BREH 14:04
PROVIDERS: ADMIT Internal Medicine; ATTEND Internal Medicine
PROC: F08Z1FZ Dressing Techniques Treatment using Assistive, Adaptive, Supportive or Protective Equipment (ICD-10-PCS; principal; 2016-04-04)
PROC: F08Z2FZ Grooming/Personal Hygiene Treatment using Assistive, Adaptive, Supportive or Protective Equipment (ICD-10-PCS; principal; 2016-04-04)
PROC: F07Z5FZ Bed Mobility Treatment using Assistive, Adaptive, Supportive or Protective Equipment (ICD-10-PCS; principal; 2016-04-04)
PROC: F08Z0FZ Bathing/Showering Techniques Treatment using Assistive, Adaptive, Supportive or Protective Equipment (ICD-10-PCS; principal; 2016-04-04)
DX: Z48.811 Encounter for surgical aftercare following surgery on the nervous system (principal); C64.9 Malignant neoplasm of unspecified kidney, except renal pelvis; C79.51 Secondary malignant neoplasm of bone; R64 Cachexia; D62 Acute posthemorrhagic anemia; D63.0 Anemia in neoplastic disease; N39.0 Urinary tract infection, site not specified; E87.1 Hypo-osmolality and hyponatremia; F32.9 Major depressive disorder, single episode, unspecified; K59.00 Constipation, unspecified; B96.5 Pseudomonas (aeruginosa) (mallei) (pseudomallei) as the cause of diseases classified elsewhere; B95.2 Enterococcus as the cause of diseases classified elsewhere; Z98.1 Arthrodesis status
CPT/HCPCS: 97110-GO; 97110-GP; 97116-GP; 97162-GP; 97166-GO; 97530-GO; 97530-GP; 97535-GO; 97542-GP; J1650